=== PATIENT | male | born 1980 | race Caucasian/White ===

== ENCOUNTER 2018-10-21 06:19 | Emergency (ER) | payer OTHER, SELFPAY ==
[2018-10-21 06:23] VITALS: BP 159/86; PULSE 90; RESP 16; TEMP 36.9; O2SAT 98
--- NOTE | 2018-10-21 06:24 | W.ED.GENAD ---
Discharge Plan Disposition Patient Disposition: HOME Condition: Stable Discharge Details Chief Complaint: Trauma Clinical Impression: Concussion Primary Care Provider: Sergio Kinsey ED Provider: Ronny Faith Home Meds and New Rx's Prescriptions: New ondansetron 4 mg tablet,disintegrating 4 mg PO TID-QID PRN (Reason: nausea and vomiting) Qty: 30 RF: 0 Continued aspirin [Aspirin Low-Strength] 81 MG tablet,chewable 1 tab PO DAILY RF: 0 CPAP RF: 0 lancets [OneTouch Delica Lancets] 1 EACH misc 1 ea Miscellaneous DAILY Qty: 100 RF: 4 blood sugar diagnostic [OneTouch Ultra Test] 1 EACH strip 1 ea Miscellaneous DAILY Qty: 100 RF: 4 lisinopril 5 MG tablet 5 mg PO DAILY Qty: 90 RF: 3 metformin 500 mg tablet extended release 24hr 1,500 mg PO QPM Qty: 270 RF: 3 pen needle, diabetic [Pen Needle] 31 gauge x 5/16 needle 1 ea Miscellaneous DAILY Qty: 90 RF: 3 carvedilol 3.125 mg tablet 3.125 mg PO BID Qty: 60 RF: 2 Victoza 3-Kodi 0.6 mg/0.1 mL (18 mg/3 mL) pen injector 1.8 mg subcut DAILY Qty: 3 RF: 3 No Action multivitamin [Daily Multi-Vitamin] 1 EACH tablet 1 ea PO DAILY RF: 0 Prilosec OTC 20 mg tablet,delayed release (DR/EC) 20 mg PO DAILY Qty: 90 RF: 3 simvastatin 20 mg tablet 20 mg PO DAILY Qty: 90 RF: 3 sertraline 100 mg tablet 100 mg PO DAILY Qty: 90 RF: 3 Discharge Instructions Instructions: Concussion (ED) Additional Instructions: if symptoms are not better by next week see your primary care provider if you feel you are becoming more ill or have persistent vomit or severe worsening of pain return to the emergency department Stand Alone Forms: Work Release Medical Decision Making 38 yo male states this past Friday he was in the yard and a 1/4inch piece of steel flipped up and hit the right posterior head. Denies loc or vomit. HAs had intermittent nausea and dizziness and some light sensitivity since. He has no focal neuro deficits, CN II-XII intact. NO significant trauma noted on eam. I suspect concussion and gave precautions on this. He meets all criteria per [place] head ct rules to not image his head. ADvised f/u with pcp and return precautions given Differential Diagnosis concussion, tbi HPI General Mode of arrival: ambulatory. Date/Time Provider Initiated Documentation: 10/21/18 06:21. Limitations to Documentation: no limitations. Information obtained by: patient. History of Present Illness 38 year old M presents to the emergency department with the chief complaint of nausea/dizziness, described as mild, and is localized to the head. Patient started experiencing this day(s) (3) and it has been intermittent. No relieving factors improve symptom(s), Other factors that worsen symptoms (bright lights) . Patient did receive the following treatments prior to arrival, none Related Data Home Medications Medication Instructions Recorded Confirmed Cpap 09/11/12 02/03/14 aspirin [Aspirin Low-Strength] 1 tab PO DAILY tab-cap 09/11/12 08/04/17 lancets [[employer] Delica Lancets] #100 ea 11/04/14 multivitamin [Daily Multi-Vitamin] 1 ea PO DAILY 08/06/16 08/04/17 blood sugar diagnostic [OneTouch #100 strip 02/07/17 Ultra Test] lisinopril 5 mg PO DAILY #90 tab-cap 10/28/17 metformin ER 500 mg 1,500 mg PO QPM #270 tab 02/23/18 tablet,extended release 24hr omeprazole magnesium 20 mg 20 mg PO DAILY #90 tab-cap 03/10/18 tablet,delayed release pen needle, diabetic 31 gauge x #90 ndl 03/10/18 5/16 simvastatin 20 mg tablet 20 mg PO DAILY #90 tab-cap 03/10/18 sertraline 100 mg tablet 100 mg PO DAILY #90 tab-cap 05/14/18 carvedilol 3.125 mg tablet 3.125 mg PO BID #60 tab 09/07/18 liraglutide 0.6 mg/0.1 mL (18 mg/3 1.8 mg SUBCUT DAILY #3 pen 09/17/18 mL) subcutaneous pen injector ondansetron 4 mg PO TID-QID PRN #30 tab 10/21/18 Previous Rx's Medication Instructions Recorded lisinopril 5 mg PO DAILY #90 tab-cap 10/28/17 metformin ER 500 mg 1,500 mg PO QPM #270 tab 02/23/18 tablet,extended release 24hr omeprazole magnesium 20 mg 20 mg PO DAILY #90 tab-cap 03/10/18 tablet,delayed release pen needle, diabetic 31 gauge x #90 ndl 03/10/18 5/16 simvastatin 20 mg tablet 20 mg PO DAILY #90 tab-cap 03/10/18 sertraline 100 mg tablet 100 mg PO DAILY #90 tab-cap 05/14/18 carvedilol 3.125 mg tablet 3.125 mg PO BID #60 tab 09/07/18 liraglutide 0.6 mg/0.1 mL (18 mg/3 1.8 mg SUBCUT DAILY #3 pen 09/17/18 mL) subcutaneous pen injector ondansetron 4 mg PO TID-QID PRN #30 tab 10/21/18 Allergies Allergy/AdvReac Type Severity Reaction Status Date / Time chloramphenicol Allergy Unknown Unverified 10/21/18 06:28 chlorpheniramine Allergy Unknown Unverified 10/21/18 06:28 phenylephrine Allergy Unknown Unverified 10/21/18 06:28 phenylpropanolamine Allergy Unknown Unverified 10/21/18 06:28 phenyltoloxamine Allergy Unknown Unverified 10/21/18 06:28 Review of Systems Review of Systems All systems reviewed & are unremarkable except as noted in HPI and below Constitutional Denies chills, Denies fever(s) and Denies weakness Eyes Denies loss of vision Cardiovascular Denies chest pain and Denies dyspnea Respiratory Denies cough and Denies dyspnea Gastrointestinal Denies abdominal pain and Denies vomiting Neurologic Denies loss of vision and Denies weakness PFSH Family History STRONG FAMILY HX Heart disease Social History Smoking/Tobacco Use Status: Never Alcohol Intake: never Drug use: Never Substance use type: does not use Do you feel safe at home: Yes Do you feel safe in your relationship?: Yes Exam Const General: no acute distress Orientation: alert HENMT Head: normal to inspection Ears: external ears normal General nose exam: external nose normal Mouth: moist mucous membranes Eyes General: appearance normal, both eyes and all related structures Neck Neck: normal visual inspection Resp Effort & Inspection: normal respiratory effort and able to speak in complete sentences Cardio Rate: regular rate Skin General skin exam: no rashes or lesions noted Neuro General: alert and oriented x3 Extrem General: normal to inspection Psych Mental Status: mental status grossly normal
--- NOTE | 2018-10-21 06:31 | ED.GENADUL_ITS ---
Discharge Plan Disposition Patient Disposition: HOME Condition: Stable Discharge Details Chief Complaint: Trauma Clinical Impression: Concussion Primary Care Provider: Sergio Kinsey ED Provider: oRnny Faith Home Meds and New Rx's Prescriptions: New ondansetron 4 mg tablet,disintegrating 4 mg PO TID-QID PRN (Reason: nausea and vomiting) Qty: 30 RF: 0 Continued aspirin [Aspirin Low-Strength] 81 MG tablet,chewable 1 tab PO DAILY RF: 0 CPAP RF: 0 lancets [OneTouch Delica Lancets] 1 EACH misc 1 ea Miscellaneous DAILY Qty: 100 RF: 4 blood sugar diagnostic [OneTouch Ultra Test] 1 EACH strip 1 ea Miscellaneous DAILY Qty: 100 RF: 4 lisinopril 5 MG tablet 5 mg PO DAILY Qty: 90 RF: 3 metformin 500 mg tablet extended release 24hr 1,500 mg PO QPM Qty: 270 RF: 3 pen needle, diabetic [Pen Needle] 31 gauge x 5/16 needle 1 ea Miscellaneous DAILY Qty: 90 RF: 3 carvedilol 3.125 mg tablet 3.125 mg PO BID Qty: 60 RF: 2 Victoza 3-Kodi 0.6 mg/0.1 mL (18 mg/3 mL) pen injector 1.8 mg subcut DAILY Qty: 3 RF: 3 No Action multivitamin [Daily Multi-Vitamin] 1 EACH tablet 1 ea PO DAILY RF: 0 Prilosec OTC 20 mg tablet,delayed release (DR/EC) 20 mg PO DAILY Qty: 90 RF: 3 simvastatin 20 mg tablet 20 mg PO DAILY Qty: 90 RF: 3 sertraline 100 mg tablet 100 mg PO DAILY Qty: 90 RF: 3 Discharge Instructions Instructions: Concussion (ED) Additional Instructions: if symptoms are not better by next week see your primary care provider if you feel you are becoming more ill or have persistent vomit or severe worsening of pain return to the emergency department Stand Alone Forms: Work Release Medical Decision Making 38 yo male states this past Friday he was in the yard and a 1/4inch piece of steel flipped up and hit the right posterior head. Denies loc or vomit. HAs had intermittent nausea and dizziness and some light sensitivity since. He has no focal neuro deficits, CN II-XII intact. NO significant trauma noted on eam. I suspect concussion and gave precautions on this. He meets all criteria per [place] head ct rules to not image his head. ADvised f/u with pcp and return precautions given Differential Diagnosis concussion, tbi HPI General Mode of arrival: ambulatory . Date/Time Provider Initiated Documentation: 10/21/18 06:21 . Limitations to Documentation: no limitations . Information obtained by: patient . History of Present Illness 38 year old M presents to the emergency department with the chief complaint of nausea/dizziness, described as mild, and is localized to the head. Patient started experiencing this day(s) (3) and it has been intermittent. No relieving factors improve symptom(s), Other factors that worsen symptoms (bright lights) . Patient did receive the following treatments prior to arrival, none Related Data Home Medications Medication Instructions Recorded Confirmed Cpap 09/11/12 02/03/14 aspirin [Aspirin Low-Strength] 1 tab PO DAILY tab-cap 09/11/12 08/04/17 lancets [[employer] Delica Lancets] #100 ea 11/04/14 multivitamin [Daily Multi-Vitamin] 1 ea PO DAILY 08/06/16 08/04/17 blood sugar diagnostic [OneTouch #100 strip 02/07/17 Ultra Test] lisinopril 5 mg PO DAILY #90 tab-cap 10/28/17 metformin ER 500 mg 1,500 mg PO QPM #270 tab 02/23/18 tablet,extended release 24hr omeprazole magnesium 20 mg 20 mg PO DAILY #90 tab-cap 03/10/18 tablet,delayed release pen needle, diabetic 31 gauge x #90 ndl 03/10/18 5/16 simvastatin 20 mg tablet 20 mg PO DAILY #90 tab-cap 03/10/18 sertraline 100 mg tablet 100 mg PO DAILY #90 tab-cap 05/14/18 carvedilol 3.125 mg tablet 3.125 mg PO BID #60 tab 09/07/18 liraglutide 0.6 mg/0.1 mL (18 mg/3 1.8 mg SUBCUT DAILY #3 pen 09/17/18 mL) subcutaneous pen injector ondansetron 4 mg PO TID-QID PRN #30 tab 10/21/18 Previous Rx's Medication Instructions Recorded lisinopril 5 mg PO DAILY #90 tab-cap 10/28/17 metformin ER 500 mg 1,500 mg PO QPM #270 tab 02/23/18 tablet,extended release 24hr omeprazole magnesium 20 mg 20 mg PO DAILY #90 tab-cap 03/10/18 tablet,delayed release pen needle, diabetic 31 gauge x #90 ndl 03/10/18 5/16 simvastatin 20 mg tablet 20 mg PO DAILY #90 tab-cap 03/10/18 sertraline 100 mg tablet 100 mg PO DAILY #90 tab-cap 05/14/18 carvedilol 3.125 mg tablet 3.125 mg PO BID #60 tab 09/07/18 liraglutide 0.6 mg/0.1 mL (18 mg/3 1.8 mg SUBCUT DAILY #3 pen 09/17/18 mL) subcutaneous pen injector ondansetron 4 mg PO TID-QID PRN #30 tab 10/21/18 Allergies Allergy/AdvReac Type Severity Reaction Status Date / Time chloramphenicol Allergy Unknown Unverified 10/21/18 06:28 chlorpheniramine Allergy Unknown Unverified 10/21/18 06:28 phenylephrine Allergy Unknown Unverified 10/21/18 06:28 phenylpropanolamine Allergy Unknown Unverified 10/21/18 06:28 phenyltoloxamine Allergy Unknown Unverified 10/21/18 06:28 Review of Systems Review of Systems All systems reviewed & are unremarkable except as noted in HPI and below Constitutional Denies chills, Denies fever(s) and Denies weakness Eyes Denies loss of vision Cardiovascular Denies chest pain and Denies dyspnea Respiratory Denies cough and Denies dyspnea Gastrointestinal Denies abdominal pain and Denies vomiting Neurologic Denies loss of vision and Denies weakness PFSH Family History STRONG FAMILY HX Heart disease Social History Smoking/Tobacco Use Status: Never Alcohol Intake: never Drug use: Never Substance use type: does not use Do you feel safe at home: Yes Do you feel safe in your relationship?: Yes Exam Const General: no acute distress Orientation: alert HENMT Head: normal to inspection Ears: external ears normal General nose exam: external nose normal Mouth: moist mucous membranes Eyes General: appearance normal, both eyes and all related structures Neck Neck: normal visual inspection Resp Effort & Inspection: normal respiratory effort and able to speak in complete sentences Cardio Rate: regular rate Skin General skin exam: no rashes or lesions noted Neuro General: alert and oriented x3 Extrem General: normal to inspection Psych Mental Status: mental status grossly normal
== END 2018-10-21 06:36 | disposition home or self-care (01) ==
LOC: ER 06:40
PROVIDERS: Emergency Provider Emergency Medicine; PCP Family Medicine
DX: S06.0X0A Concussion without loss of consciousness, initial encounter (principal); R42 Dizziness and giddiness; R11.0 Nausea; W20.8XXA Other cause of strike by thrown, projected or falling object, initial encounter; E11.9 Type 2 diabetes mellitus without complications; Z79.84 Long term (current) use of oral hypoglycemic drugs; I10 Essential (primary) hypertension
CPT/HCPCS: 99283

== ENCOUNTER 2019-05-24 13:36 | Emergency (ER) | payer OTHER, SELFPAY ==
[2019-05-24] VITALS (25 sets, daily range): BP systolic 113–148; BP diastolic 58–81; PULSE 86–94; RESP 15–25; TEMP 37; O2SAT 96
[2019-05-24] MEDS: Normal Saline 1,000 ML 1000 ML IV (14:42)
--- NOTE | 2019-05-24 14:45 | W.ED.GENAD ---
Discharge Plan Disposition Patient Disposition: HOME Condition: Stable Discharge Details Chief Complaint: Dizzy/Sync Clinical Impression: Facial flushing, Lightheadedness Primary Care Provider: Sergio Kinsey ED Provider: Gerry Tsang Home Meds and New Rx's Prescriptions: No Action aspirin [Aspirin Low-Strength] 81 MG tablet,chewable 1 tab PO DAILY RF: 0 CPAP RF: 0 (DME) lancets [OneTouch Delica Lancets] 1 EACH misc 1 ea Miscellaneous DAILY Qty: 100 RF: 4 multivitamin [Daily Multi-Vitamin] 1 EACH tablet 1 ea PO DAILY RF: 0 (DME) blood sugar diagnostic [OneTouch Ultra Test] 1 EACH strip 1 ea Miscellaneous DAILY Qty: 100 RF: 4 Victoza 3-Kodi 0.6 mg/0.1 mL (18 mg/3 mL) pen injector 1.8 mg subcut DAILY Qty: 3 RF: 8 carvedilol 3.125 mg tablet 3.125 mg PO BID Qty: 180 RF: 3 lisinopril 5 mg tablet 5 mg PO DAILY Qty: 90 RF: 3 simvastatin 20 mg tablet 20 mg PO DAILY Qty: 90 RF: 3 Prilosec OTC 20 mg tablet,delayed release (DR/EC) 20 mg PO DAILY Qty: 90 RF: 3 (DME) pen needle, diabetic [Pen Needle] 31 gauge x 5/16 needle 1 ea Miscellaneous DAILY Qty: 90 RF: 3 sertraline 100 mg tablet 100 mg PO DAILY Qty: 90 RF: 3 metformin 500 mg tablet extended release 24hr 1,500 mg PO QPM Qty: 270 RF: 3 ondansetron 4 mg tablet,disintegrating 4 mg PO TID-QID PRN (Reason: nausea and vomiting) Qty: 30 RF: 0 Discharge Instructions Additional Instructions: 1. Drink plenty of fluids. 2. Continue all medications as prescribed. Except, increase omeprazole to 20 mg twice a day. 3. Acetaminophen 1000mg every 4 hours (up to 5 time a day) and/or ibuprofen 600mg every 6 hours as needed for fever or pain. 4. Follow-up with your doctor for reevaluation and possible cardiac re-stratification Return to the Emergency Department (ED) if your condition worsens, does not improve as expected, or for ANY other concerns. Specifically, return if you have new or uncontrolled pain, worsening fever, difficulty breathing, vomiting, or are unable to drink fluids. Medical Decision Making 38-year-old gentleman with a past medical history of a remote episode of facial flushing, diaphoresis, chest pain with an extensive work-up. Has been asymptomatic since until presented today with an episode of facial flushing and lightheadedness subjectively similar to his remote episode although not associate with significant diaphoresis or chest pressure. Anxious and subjectively fatigued on arrival. However, otherwise nonfocal exam with no other constitutional complaints. EKG nondiagnostic. Labs normal including a normal troponin. Remained stable with no further symptoms on multiple re-evaluations and remained in NSR on telemetry. Discussed unclear etiology although noted that patient had done well with no recurrent symptoms since his previous episodes 11 years ago. Discharged with plan for outpatient PCP follow-up and possible re-stratification. Of note, patient notes that his reflux has been worse recently. Recommended that he increase his omeprazole to 20 mg twice a day. Given usual and customary return instructions prior to discharge. Medical Records Medical records reviewed: Yes I reviewed the patient's medical records. Lab Data Lab results reviewed: Yes I reviewed the patient's lab results. Lab results narrative: Lab Results 05/24/19 05/24/19 05/24/19 Range/Units 14:10 14:31 14:40 Sodium 137 Cancelled (136-145) mmol/L Potassium 4.3 Cancelled (3.5-5.1) mmol/L Chloride 99 Cancelled (98-107) mmol/L Carbon Dioxide 25.7 Cancelled (21.0-32.0) mmol/L Anion Gap 12.3 H Cancelled (3-11) mmol/L BUN 16 Cancelled (7-18) mg/dL Creatinine 0.92 Cancelled (0.70-1.30) mg/dL Estimated GFR/1.73 m2 >= 60.00 Cancelled (mL/min/1.73m2) Glucose 227 H Cancelled (74-106) mg/dL Calcium 9.3 Cancelled (8.5-10.1) mg/dL Magnesium 1.8 Cancelled (1.8-2.4) mg/dL Total Bilirubin 0.2 (0.2-1.0) mg/dL AST 62 H (15-37) U/L ALT 127 H (16-63) U/L Alkaline Phosphatase 89 (46-116) U/L Troponin I Cancelled < 0.05 Total Protein 8.0 (6.4-8.2) g/dL Albumin 4.3 (3.4-5.0) g/dL ECG Data Attestation: I personally reviewed and interpreted this ECG (s) as follows: Prior ECG tracings: available for review Interpretation: Sinus rhythm 90 bpm. Normal axis and intervals. No acute ST changes. HPI 38-year-old gentleman with past medical history witching includes a remote episode of chest pain/lightheadedness and near syncope approximate 11 years ago. At that time, he had extensive work-up including a nuclear stress test. He has been on multiple medications for hypertension including carvedilol since. He has essentially been asymptomatic until today when he developed subjective facial flushing and lightheadedness subjectively similar nature to his episode 11 years ago. However, today he did not have significant chest pain or diaphoresis as he recalls with the previous event. He denies significant palpitations, tachycardia, dyspnea, abdominal pain, or abdominal bloating. He has had no recent change in bowel habits, melena, hematochezia, or urinary symptoms. On initial evaluation he feels mildly fatigued but otherwise denies any other constitutional complaints General Date/Time Provider Initiated Documentation: 05/24/19 14:31. Related Data Home Medications Medication Instructions Recorded Confirmed Cpap 09/11/12 02/03/14 aspirin [Aspirin Low-Strength] 1 tab PO DAILY tab-cap 09/11/12 05/24/19 [facility]ets [facility] Del[facility] Lancets] #100 ea 11/04/14 multivitamin [Daily Multi-Vitamin] 1 ea PO DAILY 08/06/16 10/21/18 blood sugar diagnostic [[employer] #100 strip 02/07/17 Ultra Test] ondansetron 4 mg PO TID-QID PRN #30 tab 10/21/18 05/24/19 carvedilol 3.125 mg tablet 3.125 mg PO BID #180 tab 01/25/19 05/24/19 liraglutide 0.6 mg/0.1 mL (18 mg/3 1.8 mg SUBCUT DAILY #3 pen 01/25/19 05/24/19 mL) subcutaneous pen injector lisinopril 5 mg tablet 5 mg PO DAILY #90 tab-cap 01/25/19 05/24/19 simvastatin 20 mg tablet 20 mg PO DAILY #90 tab-cap 02/26/19 05/24/19 omeprazole magnesium 20 mg 20 mg PO DAILY #90 tab-cap 03/22/19 05/24/19 tablet,delayed release metformin 500 mg tablet,extended 1,500 mg PO QPM #270 tab 04/26/19 05/24/19 release 24hr pen needle, diabetic 31 gauge x #90 ndl 04/26/1910/29 sertraline 100 mg tablet 100 mg PO DAILY #90 tab-cap 04/26/19 05/24/19 Previous Rx's Medication Instructions Recorded ondansetron 4 mg PO TID-QID PRN #30 tab 10/21/18 carvedilol 3.125 mg tablet 3.125 mg PO BID #180 tab 01/25/19 liraglutide 0.6 mg/0.1 mL (18 mg/3 1.8 mg SUBCUT DAILY #3 pen 01/25/19 mL) subcutaneous pen injector lisinopril 5 mg tablet 5 mg PO DAILY #90 tab-cap 01/25/19 simvastatin 20 mg tablet 20 mg PO DAILY #90 tab-cap 02/26/19 omeprazole magnesium 20 mg 20 mg PO DAILY #90 tab-cap 03/22/19 tablet,delayed release metformin 500 mg tablet,extended 1,500 mg PO QPM #270 tab 04/26/19 release 24hr pen needle, diabetic 31 gauge x #90 ndl 04/26/1910/29 sertraline 100 mg tablet 100 mg PO DAILY #90 tab-cap 04/26/19 Allergies Allergy/AdvReac Type Severity Reaction Status Date / Time chloramphenicol Allergy Unknown Unverified 05/24/19 13:52 chlorpheniramine Allergy Unknown Unverified 05/24/19 13:52 phenylephrine Allergy Unknown Unverified 05/24/19 13:52 phenylpropanolamine Allergy Unknown Unverified 05/24/19 13:52 phenyltoloxamine Allergy Unknown Unverified 05/24/19 13:52 General Stated Complaint: Dizzy/Sync HELGA: 3 Review of Systems All systems reviewed & are unremarkable except as noted in HPI and below PFSH Family History STRONG FAMILY HX Heart disease Social History Smoking/Tobacco Use Status: Never Alcohol Intake: never Drug use: Never Substance use type: does not use Do you feel safe at home: Yes Do you feel safe in your relationship?: Yes Exam Narrative Exam Narrative: Nursing note and vital signs have been reviewed and noted. GENERAL: alert, active, no acute distress, well -hydrated, well-nourished HEENT: atraumatic/normocephalic, PERRLA, EOMI, conjunctiva clear, external ears/canals normal, nasal mucosa normal NECK: supple, full range of motion, no mass, normal lymphadenopathy, no thyromegaly CARDIOVASCULAR: RRR, no murmurs, nl pulses, no edema PULMONARY: nl effort, no audible wheezing or stridor, nl breath sounds with no focal deficit. no chest wall tenderness ABDOMEN: soft, non-tender, non-distended, no mass, no organomegaly EXTREMITY: normal muscle tone, all joints with FROM, no deformity or tenderness SKIN: no exanthem appreciated NEURO: gross motor exam normal, normal stance and gait PSYCH: alert and oriented, Course Vital Signs Vital signs: Vital Signs Temperature 98.6 F 05/24/19 13:49 Pulse 90 05/24/19 13:49 Respiratory Rate 16 05/24/19 13:49 Blood Pressure 123/76 05/24/19 13:49 Pulse Oximetry 96 05/24/19 13:49 Temperature 98.6 F 05/24/19 13:49 Temperature Source Skin 05/24/19 13:49 Pulse 87 05/24/19 14:17 Pulse 90 05/24/19 14:20 Respiratory Rate 21 05/24/19 14:20 Respiratory Effort Non-Labored 05/24/19 14:02 Respiratory Depth Normal 05/24/19 14:02 Respiratory Pattern Normal 05/24/19 14:02 Blood Pressure 122/69 05/24/19 14:17 Blood Pressure Mean 82 05/24/19 14:17 Blood Pressure Position Sitting 05/24/19 13:49 Pulse Oximetry 96 05/24/19 13:49 Oxygen Delivery Method Room Air 05/24/19 13:49 Oxygen Flow Rate 0 05/24/19 13:49 Pain Level 0 05/24/19 13:49
[2019-05-24 15:18] LABS: ALT 127 U/L (16-63); AST 62 U/L (15-37); Albumin 4.3 g/dL (3.4-5.0); Alkaline Phosphatase 89 U/L (46-116); Anion Gap 12.3 mmol/L (3-11); BUN 16 mg/dL (7-18); Bilirubin, Total 0.2 mg/dL (0.2-1.0); CO2 25.7 mmol/L (21.0-32.0); CREATININE 0.92 mg/dL (0.70-1.30); Calcium 9.3 mg/dL (8.5-10.1); Chloride 99 mmol/L (98-107); Glucose 227 mg/dL (74-106); Magnesium 1.8 mg/dL (1.8-2.4); Potassium 4.3 mmol/L (3.5-5.1); Sodium 137 mmol/L (136-145)
[2019-05-24 15:28] LABS: Troponin I < 0.05 ng/Ml (<0.06)
== END 2019-05-24 15:59 | disposition home or self-care (01) ==
PROVIDERS: Emergency Provider Emergency Medicine; PCP Family Medicine
DX: R23.2 Flushing (principal); R42 Dizziness and giddiness; I10 Essential (primary) hypertension; E11.9 Type 2 diabetes mellitus without complications; Z79.84 Long term (current) use of oral hypoglycemic drugs
CPT/HCPCS: 80048; 80053; 93005; 96360; 99284; 83735; 84484; 93010

== ENCOUNTER 2019-08-17 11:54 | Outpatient (CLI) | payer OTHER, SELFPAY ==
[2019-08-17 13:14] LABS: Calculated LDL 41 mg/dL (<100); Cholesterol 144 mg/dL (<200); HDL Cholesterol 24 mg/dL (40-60); Potassium 4.1 mmol/L (3.5-5.1); Triglyceride 398 mg/dL (<150)
[2019-08-17 13:20] LABS: COMMENT (LAB VIEW ONLY) 155.49 mg/dL; Microalb ug/mg Crea 9.7 ug/mg Cr
[2019-08-17 13:49] LABS: Hemoglobin A1C 8.1 % (3.8-5.6)
== END 2019-08-17 12:14 ==
PROVIDERS: PCP Family Medicine; Visit Provider Family Medicine
DX: E11.9 Type 2 diabetes mellitus without complications (principal); E78.5 Hyperlipidemia, unspecified; R73.9 Hyperglycemia, unspecified
CPT/HCPCS: 36415; 80061; 82043; 82565; 82570; 83036; 84132

== ENCOUNTER 2020-07-11 07:53 | Emergency (ER) | payer BC, SELFPAY ==
[2020-07-11 07:59] VITALS: BP 132/79; PULSE 95; TEMP 36.6; O2SAT 95
--- NOTE | 2020-07-11 08:22 | W.ED.GENAD ---
Discharge Plan Disposition Patient Disposition: HOME Condition: Stable Discharge Details Clinical Impression: Diverticulosis large intestine w/o perforation or abscess w/bleeding Primary Care Provider: Sergio Kinsey ED Provider: Michlele Kiran Home Meds and New Rx's Prescriptions: Continued CPAP RF: 0 (DME) lancets [OneTouch Delica Lancets] 1 EACH misc 1 ea Miscellaneous DAILY Qty: 100 RF: 4 multivitamin [Daily Multi-Vitamin] 1 EACH tablet 1 ea PO DAILY RF: 0 (DME) OneTouch Ultra Test 1 EACH strip 1 ea Miscellaneous DAILY Qty: 100 RF: 4 lisinopril 5 mg tablet 5 mg PO DAILY Qty: 90 RF: 3 Jardiance 10 mg tablet 10 mg PO DAILY Qty: 90 RF: 3 carvedilol 3.125 mg tablet 3.125 mg PO BID Qty: 180 RF: 3 omeprazole magnesium [Prilosec OTC] 20 mg tablet,delayed release (DR/EC) 20 mg PO DAILY Qty: 90 RF: 3 Victoza 3-Kodi 0.6 mg/0.1 mL (18 mg/3 mL) pen injector 1.8 mg subcut DAILY Qty: 3 RF: 8 sertraline 100 mg tablet 100 mg PO DAILY Qty: 90 RF: 3 simvastatin 20 mg tablet 20 mg PO DAILY Qty: 90 RF: 3 metformin 500 mg tablet extended release 24hr 1,500 mg PO QPM Qty: 270 RF: 3 (DME) pen needle, diabetic [Pen Needle] 31 gauge x 5/16 needle 1 ea Miscellaneous DAILY Qty: 90 RF: 3 aspirin 81 mg Tablet,Delayed Release (Dr/Ec) 81 mg PO DAILY RF: 0 Discharge Instructions Instructions: Rectal Bleeding (ED), Diverticulosis (ED), Diverticulitis Diet (ED) Additional Instructions: Follow up with primary care provider in 3-5 days. Return to ED sooner if any worsening or concerns. Increase oral fluids. Please take Tylenol or Ibuprofen with food every 4-6 hours as needed for pain and swelling. Return to the ED for any worsening pain, dizziness, worsening rectal bleeding start passing clots were more than 3-4 episodes of rectal bleeding a day. Stand Alone Forms: Work Release Referrals: Cecile Oreilly MD [ [facility] STAFF PHYSICIAN] - Sergio Kinsey [Primary Care Provider] - Discharge Data Discharge Date/Time-TO BE ENTERED AT DEPARTURE: 07/11/20 10:09 Medical Decision Making 39-year-old male presents to the ER chief complaint of bright red rectal bleeding x1 this morning and left lower quadrant abdominal pain. He describes a dull ache to his left lower quadrant after having a bowel movement this morning which contained bright red blood. He denies any nausea or vomiting. Denies any rectal pain. He denies any alcohol use or ibuprofen or Tylenol. He does take a baby aspirin daily. She has a past medical history of hyperlipidemia, obesity, GERD, diabetes, depression. Work-up ordered including CBC, CMP, lipase, CT abdomen pelvis with IV contrast. EXAM: CT ABDOMEN PELVIS W CLINICAL HISTORY: LLQ abd pain, Rectal bleeding. TECHNIQUE: Imaging Protocol: Axial computed tomography images with coronal and sagittal reformatted images were created and reviewed CONTRAST MATERIAL: Intravenous: Omnipaque 350 Contrast volume:100 Oral: No COMPARISON: US ABDOMEN ULTRASOUND (P) from 04/17/2015 FINDINGS: ABDOMEN: Lung Bases: Normal where visualized. Liver: Enlarged. Mild hepatic steatosis. No measurable mass. Gallbladder and biliary tract: Question of a few small dependent stones. No biliary dilation, abnormal gallbladder distention or wall thickening. Pericholecystic fluid.. Pancreas: Normal density, no abnormal calcifications or inflammatory process. Spleen: Normal. Kidneys: Normal size, contour and axis. No radiodense stones or obstructive uropathy. No masses seen. Adrenal glands: No masses seen. Abdominal Aorta: Abdominal portion non-dilated. Soft tissues: Small fatty containing umbilical hernia. PELVIS: Bladder: Symmetric distention, no gross wall thickening. Bowel: Diverticulosis lower descending and sigmoid colon. No surrounding inflammation. No obstruction or bowel wall thickening. Normal appendix. No gastric or small bowel distention or wall thickening. No perirectal thickening. Peritoneal cavity: No ascites, collection or mesenteric inflammatory response. No free air. Bones: Within normal limits. Reproductive organs: Within normal limits. Lymph nodes: Unremarkable. Impression: Diverticulosis of the lower descending and sigmoid colon. No visible diverticulitis. No free air or abscess.. Labs are largely unremarkable H&H within normal limits. Patient is hemodynamically stable and nontachycardic here in department. At this time there is no evidence of diverticulitis or free air or abscess to indicate a perforated diverticulum. Will place patient on the follow-up list for general surgery within a week. Discussed home care and strict return instructions with patient who verbalized understanding. HPI General Mode of arrival: ambulatory. Date/Time Provider Initiated Documentation: 07/11/20 08:02. Limitations to Documentation: no limitations. Information obtained by: patient. HPI Narrative: 39-year-old male presents to the ER chief complaint of bright red rectal bleeding x1 this morning and left lower quadrant abdominal pain. He describes a dull ache to his left lower quadrant after having a bowel movement this morning which contained bright red blood. He denies any nausea or vomiting. Denies any rectal pain. He denies any alcohol use or ibuprofen or Tylenol. He does take a baby aspirin daily. She has a past medical history of hyperlipidemia, obesity, GERD, diabetes, depression. Related Data Home Medications Medication Instructions Recorded Confirmed Cpap 09/11/12 08/17/19 lancets [OneTouch Delica Lancets] #100 ea 11/04/14 08/17/19 multivitamin [Daily Multi-Vitamin] 1 ea PO DAILY 08/06/16 07/11/20 OneTouch Ultra Test #100 strip 02/07/17 08/17/19 lisinopril 5 mg tablet 5 mg PO DAILY #90 tab-cap 11/03/19 07/11/20 carvedilol 3.125 mg tablet 3.125 mg PO BID #180 tab 11/22/19 07/11/20 empagliflozin 10 mg tablet 10 mg PO DAILY #90 tab 11/22/19 07/11/20 omeprazole magnesium 20 mg 20 mg PO DAILY #90 tab-cap 01/03/20 07/11/20 tablet,delayed release liraglutide 0.6 mg/0.1 mL (18 mg/3 1.8 mg SUBCUT DAILY #3 pen 02/07/20 07/11/20 mL) subcutaneous pen injector sertraline 100 mg tablet 100 mg PO DAILY #90 tab-cap 02/18/20 07/11/20 simvastatin 20 mg tablet 20 mg PO DAILY #90 tab-cap 04/03/20 07/11/20 metformin 500 mg tablet,extended 1,500 mg PO QPM #270 tab 05/15/20 07/11/20 release 24hr pen needle, diabetic 31 gauge x #90 ndl 06/12/2010/29 aspirin 81 mg PO DAILY 07/11/20 07/11/20 Previous Rx's Medication Instructions Recorded lisinopril 5 mg tablet 5 mg PO DAILY #90 tab-cap 11/03/19 carvedilol 3.125 mg tablet 3.125 mg PO BID #180 tab 11/22/19 empagliflozin 10 mg tablet 10 mg PO DAILY #90 tab 11/22/19 omeprazole magnesium 20 mg 20 mg PO DAILY #90 tab-cap 01/03/20 tablet,delayed release liraglutide 0.6 mg/0.1 mL (18 mg/3 1.8 mg SUBCUT DAILY #3 pen 02/07/20 mL) subcutaneous pen injector sertraline 100 mg tablet 100 mg PO DAILY #90 tab-cap 02/18/20 simvastatin 20 mg tablet 20 mg PO DAILY #90 tab-cap 04/03/20 metformin 500 mg tablet,extended 1,500 mg PO QPM #270 tab 05/15/20 release 24hr pen needle, diabetic 31 gauge x #90 ndl 06/12/2010/29 Allergies Allergy/AdvReac Type Severity Reaction Status Date / Time chloramphenicol Allergy Unknown Unverified 07/11/20 08:04 chlorpheniramine Allergy Unknown Unverified 07/11/20 08:04 phenylephrine Allergy Unknown Unverified 07/11/20 08:04 phenylpropanolamine Allergy Unknown Unverified 07/11/20 08:04 phenyltoloxamine Allergy Unknown Unverified 07/11/20 08:04 General Stated Complaint: GI Bleed HELGA: 3 Review of Systems Narrative: Constitutional: Negative for weight loss, alert and oriented, well groomed, obese body habitus, appears comfortable. HEENT: Denies trauma, headaches, blurry vision, nasal discharge, sore throat, trouble swallowing. Chest: Denies chest pain, palpitations, irregular rhythm, hypertension. Respiratory: Denies Shortness of breath, cough, hemoptysis. GI: Denies nausea, vomiting, diarrhea, constipation. Positive left lower quadrant abdominal pain. : Denies dysuria, hematuria, flank pain, positive rectal bleeding. Neuro: Denies dizziness, blurry vision, weakness, syncope, headache or facial numbness. Hematologic: Denies easy bruising, intolerance to heat or cold, hair loss. PFSH Family History STRONG FAMILY HX Heart disease Mother No problems noted. Father , age 53 Depression Diabetes Heart disease Hyperlipidemia Sister Depression Son Asthma Depression Maternal Grandfather , age 80 Alcohol abuse Cancer Paternal Grandfather , age 72 Diabetes Maternal Grandmother , age 78 No problems noted. Paternal Grandmother , age 80 No problems noted. Social History Smoking/Tobacco Use Status: Former Tobacco Use Tobacco: How many years used: 13 Second Hand Exposure: Yes Smoking risk assessment performed?: Yes Alcohol Intake: current Alcohol Intake frequency: a few times a month Alcohol type: beer and hard liquor Drug use: Never Substance use type: does not use Caregiver/Support person: No Household members: spouse and children Communication Needs: None Pets and animals: Yes Pets and animals: cat(s), fish and other Details: bearded dragon Sexually active: Yes Do you think of yourself as: straight/heterosexual Current gender identity: male What is your relationship status?: How often do you talk on the phone with friends or family?: once per week How often do you get together with friends or relatives?: once per week How often do you attend sikhism or advent services?: decline to answer Do you belong to any clubs or organized social groups?: no Panel score (0-1 are the most socially isolated patients): 1 What type of physical activity do you participate in: walking Duration: > 90 minutes/day Frequency: daily Tika/Oriental Orthodox: Yarsanism Special tika needs: No Seatbelt use: never Helmet use: Yes Helmet use: always Drive intox or ride w/intox explosives truck driver: No Do you feel safe at home: Yes Do you feel safe in your relationship?: Yes Exam Narrative Exam Narrative: Constitutional: Alert and oriented x3. Appears stated age. Normal body habitus. Head: Normocephalic, no trauma. Eyes: Pupils PERRLA, Red reflex noted, EOM's intact. Eyelids symmetrical without lesions, discharge, or swelling. ENT: Bilateral TM's WNL, External ear normal to inspection, no mastoid TTP, swelling, or erythema, Nasal turbinates WNL, no nasal discharge. Normal dentition, Posterior pharynx WNL, no exudate. Chest: RRR, Normal S1, S2, distal pulses intact. Resp: Lungs clear to auscultation bilaterally, no wheezes, rales, or rhonchi. Abdomen: Soft, nondistended, tender to left lower quadrant with palpation. Musculoskeletal: Normal gait, 5/5 strength to all four extremities. Skin: No suspicious rashes or lesions. Capillary refill less than 2 sec. Neurologic: Cranial nerves II-XII intact. Alert and oriented x 3. DTR's intact. Hematologic/Lymphatic: No ecchymosis, no lymphadenopathy. Course Vital Signs Vital signs: Vital Signs Temperature 36.6 C 07/11/20 07:59 Pulse 95 H 07/11/20 07:59 Blood Pressure 132/79 07/11/20 07:59 Pulse Oximetry 95 07/11/20 07:59 Temperature 36.6 C 07/11/20 07:59 Temperature Source Temporal Artery Scan 07/11/20 07:59 Pulse 95 H 07/11/20 07:59 Respiratory Effort Non-Labored 07/11/20 08:03 Blood Pressure 132/79 07/11/20 07:59 Blood Pressure Position Sitting 07/11/20 07:59 Pulse Oximetry 95 07/11/20 07:59 Oxygen Delivery Method Room Air 07/11/20 07:59 Oxygen Flow Rate 0 07/11/20 07:59 Pain Level 2 07/11/20 07:59 Procedures Stool Hemoccult Procedural Steps Taken: stool placed in appropriate test area, developer placed on stool and control areas and controls appropriately positive and negative Hemoccult result: positive Additional Comments: gross hematochezia
[2020-07-11] MEDS: Normal Saline 1,000 ML 1000 ML IV (08:25)
[2020-07-11] MEDS: Normal Saline Flush 10 ML SYR IVP (08:25)
[2020-07-11 08:36] LABS: Abs Immature Grans 0.05 10^3/uL (0.0-0.06); Absolute Basophil Count 0.03 10^3/uL (0.0-0.2); Absolute Eosinophil Count 0.12 10^3/uL (0.0-0.7); Absolute Lymphocyte Count 1.27 10^3/uL (1.2-3.4); Absolute Monocyte Count 0.35 10^3/uL (0.1-0.8); Absolute Neutrophil Count 3.47 10^3/uL (1.2-6.7); Basophils % 0.6; Eosinophils % 2.3; HGB 14.5 g/dL (13.5-17.5); Immature Grans % 0.9; MCH 27.5 pg (27.0-33.0); MCHC 33.7 % (32.0-36.0); MCV 81.4 fL (80-95); MPV 9.9 fL (8.0-11.0); Monocytes % 6.6; Neutrophils % 65.6; Nucleated RBC 0 %; Platelet Count 152 10^3/uL (130-400); RBC 5.28 10^6/uL (4.36-5.78); RDW 13.4 % (11.8-14.1); RDW-SD 39.7 fL; WBC 5.29 10^3/uL (4.4-10.8)
[2020-07-11 08:52] LABS: ALT 110 U/L (16-63); AST 43 U/L (15-37); Albumin 4.5 g/dL (3.4-5.0); Alkaline Phosphatase 76 U/L (46-116); Anion Gap 7.7 mmol/L (3-11); BUN 14 mg/dL (7-18); Bilirubin, Total 0.4 mg/dL (0.2-1.0); CO2 26.3 mmol/L (21.0-32.0); CREATININE 0.79 mg/dL (0.70-1.30); Calcium 8.8 mg/dL (8.5-10.1); Chloride 102 mmol/L (98-107); Glucose 118 mg/dL (74-106); Lipase 185 U/L (73-393); Magnesium 2.1 mg/dL (1.8-2.4); Sodium 136 mmol/L (136-145); Total Protein 8.1 g/dL (6.4-8.2)
[2020-07-11] MEDS: Omnipaque 350 MG/ML 100 ML BTL IJ (09:20)
--- NOTE | 2020-07-11 09:25 | DI.CT_ITS ---
EXAM: CT ABDOMEN PELVIS W CLINICAL HISTORY: LLQ abd pain, Rectal bleeding. TECHNIQUE: Imaging Protocol: Axial computed tomography images with coronal and sagittal reformatted images were created and reviewed CONTRAST MATERIAL: Intravenous: Omnipaque 350 Contrast volume:100 Oral: No COMPARISON: US ABDOMEN ULTRASOUND (P) from 04/17/2015 FINDINGS: ABDOMEN: Lung Bases: Normal where visualized. Liver: Enlarged. Mild hepatic steatosis. No measurable mass. Gallbladder and biliary tract: Question of a few small dependent stones. No biliary dilation, abnor mal gallbladder distention or wall thickening. Pericholecystic fluid.. Pancreas: Normal density, no abnormal calcifications or inflammatory process. Spleen: Normal. Kidneys: Normal size, contour and axis. No radiodense stones or obstructive uropathy. No masses seen. Adrenal glands: No masses seen. Abdominal Aorta: Abdominal portion non-dilated. Soft tissues: Small fatty containing umbilical hernia. PELVIS: Bladder: Symmetric distention, no gross wall thickening. Bowel: Diverticulosis lower descending and sigmoid colon. No surrounding inflammation. No obstruct ion or bowel wall thickening. Normal appendix. No gastric or small bowel distention or wall thicke va. No perirectal thickening. Peritoneal cavity: No ascites, collection or mesenteric inflammatory response. No free air. Bones: Within normal limits. Reproductive organs: Within normal limits. Lymph nodes: Unremarkable. Impression: Diverticulosis of the lower descending and sigmoid colon. No visible diverticulitis. No free air or abscess.. RADIATION DOSE DELIVERED: Total DLP DATA REPOSITORY: All CT scans at this facility are submitted to the National Radiology Data Registry (NRDR) Dose Index Registry (DIR) with the [employer] (A[employer]). RADIATION OPTIMIZATION: All CT scans at this facility use at least one of these dose optimization te chniques: automated exposure control; mA and/or kV adjustment per patient size (includes targeted exa ms where dose is matched to clinical indication); or iterative reconstruction.
[2020-07-11] MEDS: Normal Saline - Diluent 50 ML VIAL IV (09:33)
[2020-07-11 09:45] LABS: Bilirubin Negative (Negative); Blood Negative (Negative); Clarity Clear (Clear); Glucose 500 mg/dL (Negative); Ketones Negative (Negative); Leukocyte Esterase Negative (Negative); Nitrite Negative (Negative); Urobilinogen 0.2 EU/dL (Up TO 0.2); pH 5.5 (5-8)
--- NOTE | 2020-07-11 09:56 | NUR.NOTE ---
Referral [facility] f/u for diverticulosis and rectal bleeding.Nursing Note:
[2020-07-11 10:05] VITALS: BP 117/69; PULSE 80; RESP 18; TEMP 37.2; O2SAT 95
== END 2020-07-11 10:09 | disposition home or self-care (01) ==
PROVIDERS: Emergency Provider Registered Nurse Emergency; PCP Family Medicine
DX: K57.31 Diverticulosis of large intestine without perforation or abscess with bleeding (principal); R10.32 Left lower quadrant pain; E11.9 Type 2 diabetes mellitus without complications; Z79.84 Long term (current) use of oral hypoglycemic drugs
CPT/HCPCS: 36415; 80053; 83690; 96360; 99285; 74177; 81003; 83735; 85025; 99284; J3490

== ENCOUNTER 2021-03-31 06:45 | Emergency (ER) | payer BC, SELFPAY ==
[2021-03-31 06:50] VITALS: BP 137/76; PULSE 93; RESP 16; TEMP 36; O2SAT 96
--- NOTE | 2021-03-31 06:51 | W.ED.GENAD ---
Discharge Plan Disposition Patient Disposition: HOME Condition: Improving Discharge Details Clinical Impression: Acute diverticulitis Primary Care Provider: Sergio Kinsey ED Provider: Mariah Flores Home Meds and New Rx's Prescriptions: New amoxicillin-pot clavulanate [Augmentin] 875-125 mg tablet 1 tab PO BID 10 Days Qty: 20 RF: 0 Continued sertraline 50 mg tablet 50 mg PO DAILY Qty: 90 RF: 3 sertraline 100 mg tablet 50 mg PO DAILY Qty: 90 RF: 3 CPAP RF: 0 (DME) lancets [OneTouch Delica Lancets] 1 EACH misc 1 ea Miscellaneous DAILY Qty: 100 RF: 4 multivitamin [Daily Multi-Vitamin] 1 EACH tablet 1 ea PO DAILY RF: 0 (DME) OneTouch Ultra Test 1 EACH strip 1 ea Miscellaneous DAILY Qty: 100 RF: 4 omeprazole magnesium [Prilosec OTC] 20 mg tablet,delayed release (DR/EC) 20 mg PO DAILY Qty: 90 RF: 3 (DME) pen needle, diabetic [Pen Needle] 31 gauge x 5/16 needle 1 ea Miscellaneous DAILY Qty: 90 RF: 3 Trulicity 0.75 mg/0.5 mL pen injector 0.75 mg subcut QWEEK Qty: 2 RF: 11 lisinopril 5 mg tablet 5 mg PO DAILY Qty: 90 RF: 3 carvedilol 3.125 mg tablet 3.125 mg PO BID Qty: 180 RF: 3 Jardiance 10 mg tablet 10 mg PO DAILY Qty: 90 RF: 3 simvastatin 20 mg tablet 20 mg PO DAILY Qty: 90 RF: 3 metformin 500 mg tablet extended release 24hr 1,500 mg PO QPM Qty: 270 RF: 3 aspirin 81 mg Tablet,Delayed Release (Dr/Ec) 81 mg PO DAILY RF: 0 Discharge Instructions Instructions: Diverticulitis (ED), Diverticulitis Diet (ED) Additional Instructions: Your CAT scan today noted evidence of diverticulitis which is an infection in your colon secondary to your diverticulosis. A prescription for antibiotics has been sent electronically to your pharmacy. Pick this up today and take this as directed until finished. You should follow a clear liquid diet over the 24 hours to allow your bowel to rest. Follow the diverticulitis diet as directed. Alternate tylenol and motrin as needed and directed for pain. Call the general surgery office on Friday morning to schedule a follow-up appointment for reevaluation. Return immediately to the emergency department if you develop any worsening or new concerning symptoms. Referrals: Cecile Oreilly MD [ [facility] STAFF PHYSICIAN] - Discharge Data Discharge Date/Time-TO BE ENTERED AT DEPARTURE: 03/31/21 10:23 Discharge Physician: Mariah Flores Medical Decision Making <Arun Casas MD - Last Filed: 03/31/21 07:13> Patient presenting with 2-1/2 days of worsening left lower quadrant abdominal pain. He is exquisitely tender with guarding in the left lower quadrant. No testicular tenderness. No hernia present. Likely diverticulitis given previous diagnosis of diverticulosis. Will place IV and start fluids. Toradol for pain. Laboratory studies and CT scan ordered. Need to make sure there is no perforation or abscess given the amount of tenderness he has. Will likely require IV antibiotics and admission. <Mariah Flores DO - Last Filed: 03/31/21 11:57> 0800 -- Please see Dr. Casas's note for initial presentation, exam and plan. Case endorsed to follow-up on CT imaging and final disposition. 09 -- CT pending. Patient reassessed and he feels much better, states his pain is completely resolved after IV Toradol. 0945 -- CT notes acute diverticulitis involving the descending and sigmoid colon without abscess or perforation. Also noted cholelithiasis, hepatic steatosis and splenomegaly. Patient informed of results. Patient feels much better and would like to go home. As he has no fever, normal white blood cell count and has symptomatically improved, will give a dose of oral antibiotics and discharge home. Case and imaging reviewed with surgery who agree with plan. He was given 1 dose of Augmentin here and prescription sent electronically to his pharmacy. He was given surgery follow-up information. Usual and customary return precautions given prior to discharge. Medical Records Medical records reviewed: Yes I reviewed the patient's medical records. Imaging Data Radiologic Study: Radiologist's impression: CT Abdomen And Pelvis With Contrast Exam date and time: 03/31/2021 8:24 AM Age: 40 years old Clinical indication: Other: Llq pain/tenderness TECHNIQUE: Imaging protocol: Computed tomography of the abdomen and pelvis with contrast. Radiation optimization: All CT scans at this facility use at least one of these dose optimization techniques: automated exposure control; mA and/or kV adjustment per patient size (includes targeted exams where dose is matched to clinical indication); or iterative reconstruction. Contrast material: OMNIPAQUE 350; Contrast volume: 100 ml; Contrast route: INTRAVENOUS (IV); COMPARISON: CT ABDOMEN PELVIS W 11/07/2020 09:20 FINDINGS: Lungs: Visualized lung bases are clear. Liver: There is mild diffuse fatty infiltration of the liver with no mass or ductal dilatation. Gallbladder and bile ducts: Small calcified stones are seen near the neck of the gallbladder without wall thickening or pericholecystic fluid. The common bile duct remains normal. Pancreas: Normal. No mass or ductal dilation. Spleen: The spleen is enlarged to about 17 cm sagittal diameter. Adrenal glands: Normal. No mass. Kidneys and ureters: Normal. No hydronephrosis, calculus, cyst or mass. Stomach and bowel: Stomach and small bowel are normal. There is a oval radiopaque object in the cecum which is probably an ingested tablet of some sort. In the left lower quadrant there is diverticular disease with wall thickening inflammation involving a segment about 9 cm long. There is no abscess collection or perforation. Appendix: No evidence of appendicitis. Intraperitoneal space: Unremarkable. No free air. No significant fluid collection. Vasculature: Unremarkable. No abdominal aortic aneurysm or significant atherosclerosis. Lymph nodes: No enlarged retroperitoneal or mesenteric lymph nodes. Few shotty retroperitoneal lymph nodes are present. Urinary bladder: No mass or wall thickening. Reproductive: Unremarkable as visualized. Bones/joints: Unremarkable. No acute fracture. No lytic lesion. Soft tissues: Unremarkable. IMPRESSION: 1. Acute diverticulitis involving the descending and sigmoid colon without abscess or perforation. 2. Cholelithiasis. 3. Hepatic steatosis. 4. Splenomegaly. Lab Data Lab results reviewed: Yes I reviewed the patient's lab results. Labs: Laboratory Tests Range/Units 03/31/21 03/31/21 03/31/21 07:10 07:10 07:10 WBC (4.4-10.8) 10^3/uL 8.89 RBC (4.36-5.78) 10^6/uL 5.13 Hgb (13.5-17.5) g/dL 14.1 Hct (40.0-50.0) % 42.9 MCV (80-95) fL 83.6 MCH (27.0-33.0) pg 27.5 MCHC (32.0-36.0) % 32.9 RDW (11.8-14.1) % 13.1 Plt Count (130-400) 10^3/uL 152 MPV (8.0-11.0) fL 9.6 Immature Gran % 0.6 Neutrophils % 77.9 Lymphocytes % 13.2 Monocytes % 7.0 Eosinophils % 1.1 Basophils % 0.2 Nucleated RBC % % 0 Absolute Neutrophils (1.2-6.7) 10^3/uL 6.93 H Absolute Lymphocytes (1.2-3.4) 10^3/uL 1.17 L Absolute Monocytes (0.1-0.8) 10^3/uL 0.62 Absolute Eosinophils (0.0-0.7) 10^3/uL 0.10 Absolute Basophils (0.0-0.2) 10^3/uL 0.02 Sodium (136-145) mmol/L 140 Potassium (3.5-5.1) mmol/L 4.0 Chloride (98-107) mmol/L 102 Carbon Dioxide (21.0-32.0) mmol/L 29.4 Anion Gap (3-11) mmol/L 8.6 BUN (7-18) mg/dL 19 H Creatinine (0.70-1.30) mg/dL 0.8 Estimated GFR/1.73 m2 (mL/min/1.73m2) >= 60.00 Glucose (74-106) mg/dL 101 Calcium (8.5-10.1) mg/dL 9.1 Total Bilirubin (0.2-1.0) mg/dL 0.6 AST (15-37) U/L 20 ALT (16-63) U/L 50 Alkaline Phosphatase (46-116) U/L 89 Total Protein (6.4-8.2) g/dL 7.8 Albumin (3.4-5.0) g/dL 4.2 Lipase (73-393) U/L 106 Urine Color (Yellow) Urine Clarity (Clear) Urine pH (5-8) Ur Specific Coward (1.005-1.025) Urine Protein (Negative) mg/dL Urine Ketones (Negative) mg/dL Urine Blood (Negative) Urine Nitrite (Negative) Urine Bilirubin (Negative) Urine Urobilinogen (Up TO 0.2) EU/dL Ur Leukocyte Esterase (Negative) Urine Glucose (Negative) mg/dL Range/Units 03/31/21 07:50 WBC (4.4-10.8) 10^3/uL RBC (4.36-5.78) 10^6/uL Hgb (13.5-17.5) g/dL Hct (40.0-50.0) % MCV (80-95) fL MCH (27.0-33.0) pg MCHC (32.0-36.0) % RDW (11.8-14.1) % Plt Count (130-400) 10^3/uL MPV (8.0-11.0) fL Immature Gran % Neutrophils % Lymphocytes % Monocytes % Eosinophils % Basophils % Nucleated RBC % % Absolute Neutrophils (1.2-6.7) 10^3/uL Absolute Lymphocytes (1.2-3.4) 10^3/uL Absolute Monocytes (0.1-0.8) 10^3/uL Absolute Eosinophils (0.0-0.7) 10^3/uL Absolute Basophils (0.0-0.2) 10^3/uL Sodium (136-145) mmol/L Potassium (3.5-5.1) mmol/L Chloride (98-107) mmol/L Carbon Dioxide (21.0-32.0) mmol/L Anion Gap (3-11) mmol/L BUN (7-18) mg/dL Creatinine (0.70-1.30) mg/dL Estimated GFR/1.73 m2 (mL/min/1.73m2) Glucose (74-106) mg/dL Calcium (8.5-10.1) mg/dL Total Bilirubin (0.2-1.0) mg/dL AST (15-37) U/L ALT (16-63) U/L Alkaline Phosphatase (46-116) U/L Total Protein (6.4-8.2) g/dL Albumin (3.4-5.0) g/dL Lipase (73-393) U/L Urine Color (Yellow) Yellow Urine Clarity (Clear) Sl Cloudy Urine pH (5-8) 7.0 Ur Specific Coward (1.005-1.025) 1.025 Urine Protein (Negative) mg/dL Negative Urine Ketones (Negative) mg/dL Negative Urine Blood (Negative) Negative Urine Nitrite (Negative) Negative Urine Bilirubin (Negative) Negative Urine Urobilinogen (Up TO 0.2) EU/dL 0.2 Ur Leukocyte Esterase (Negative) Negative Urine Glucose (Negative) mg/dL >=1000 H HPI <Arun Casas MD - Last Filed: 03/31/21 07:13> General Mode of arrival: ambulatory. Date/Time Provider Initiated Documentation: 03/31/21 06:49. Limitations to Documentation: no limitations. Information obtained by: patient, RN notes reviewed and old records reviewed. HPI Narrative: Patient presents to ED with left lower quadrant abdominal pain. Patient reports symptoms began 2-1/2 days ago. Initially thought that he just strained a muscle. Has had worsening pain since. Localized to the left lower quadrant. This morning severe, difficulty ambulating, significant pain while driving to the ED. He denies any fever, vomiting, diarrhea, back pain, testicular pain, urinary symptoms. Previous episode of rectal bleeding with CT scan in June of this year showing diverticulosis. No further bleeding since then and no abdominal problems until 2-1/2 days ago. Related Data Home Medications Medication Instructions Recorded Confirmed Cpap 09/11/12 03/23/21 lancets [OneTouch Delica Lancets] #100 ea 11/04/14 03/31/21 multivitamin [Daily Multi-Vitamin] 1 ea PO DAILY 08/06/16 03/31/21 OneTouch Ultra Test #100 strip 02/07/17 03/31/21 omeprazole magnesium 20 mg 20 mg PO DAILY #90 tab-cap 01/03/20 03/31/21 tablet,delayed release pen needle, diabetic 31 gauge x #90 ndl 06/12/20 03/31/2110/29 aspirin 81 mg PO DAILY 07/11/20 03/31/21 dulaglutide 0.75 mg/0.5 mL 0.75 mg SUBCUT QWEEK #2 ml 08/03/20 03/31/21 subcutaneous pen injector lisinopril 5 mg tablet 5 mg PO DAILY #90 tab-cap 11/02/20 03/31/21 carvedilol 3.125 mg tablet 3.125 mg PO BID #180 tab 11/07/20 03/31/21 empagliflozin 10 mg tablet 10 mg PO DAILY #90 tab 11/20/20 03/31/21 sertraline 100 mg tablet 50 mg PO DAILY #90 tab-cap 11/28/20 03/31/21 sertraline 50 mg tablet 50 mg PO DAILY #90 tab 11/28/20 03/31/21 metformin 500 mg tablet,extended 1,500 mg PO QPM #270 tab 02/28/21 03/31/21 release 24hr simvastatin 20 mg tablet 20 mg PO DAILY #90 tab-cap 02/28/21 03/31/21 amoxicillin-pot clavulanate 1 tab PO BID 10 Days #20 tab 03/31/21 [Augmentin] Previous Rx's Medication Instructions Recorded omeprazole magnesium 20 mg 20 mg PO DAILY #90 tab-cap 01/03/20 tablet,delayed release pen needle, diabetic 31 gauge x #90 ndl 06/12/2010/29 dulaglutide 0.75 mg/0.5 mL 0.75 mg SUBCUT QWEEK #2 ml 08/03/20 subcutaneous pen injector lisinopril 5 mg tablet 5 mg PO DAILY #90 tab-cap 11/02/20 carvedilol 3.125 mg tablet 3.125 mg PO BID #180 tab 11/07/20 empagliflozin 10 mg tablet 10 mg PO DAILY #90 tab 11/20/20 sertraline 100 mg tablet 50 mg PO DAILY #90 tab-cap 11/28/20 sertraline 50 mg tablet 50 mg PO DAILY #90 tab 11/28/20 metformin 500 mg tablet,extended 1,500 mg PO QPM #270 tab 02/28/21 release 24hr simvastatin 20 mg tablet 20 mg PO DAILY #90 tab-cap 02/28/21 amoxicillin-pot clavulanate 1 tab PO BID 10 Days #20 tab 03/31/21 [Augmentin] Allergies Allergy/AdvReac Type Severity Reaction Status Date / Time chloramphenicol Allergy Unknown Verified 03/31/21 06:55 chlorpheniramine Allergy Unknown From Verified 03/31/21 06:55 Naldecon phenylephrine Allergy Unknown From Verified 03/31/21 06:55 [place] phenylpropanolamine Allergy Unknown From Verified 03/31/21 06:55 [place] phenyltoloxamine Allergy Unknown From Verified 03/31/21 06:55 Naldecon General HELGA: 3 Review of Systems <Arun Casas MD - Last Filed: 03/31/21 07:13> Narrative: 03/29 Review of Systems completed and is negative except as stated above in HPI (Systems reviewed: Const, Eyes, ENT, Resp, CV, GI, , MSK, Skin, Neuro) PFSH <Arun Casas MD - Last Filed: 03/31/21 07:13> Medical History Diabetes mellitus (10/31/14) Essential hypertension (04/15/13) Gastroesophageal reflux disease (02/25/12) Hyperlipidemia (10/19/12) Obesity Obstructive sleep apnea syndrome CPAP Surgical History No significant past surgical history Family History STRONG FAMILY HX Heart disease Mother No problems noted. Father , age 53 Depression Diabetes Heart disease Hyperlipidemia Sister Depression Son Asthma Depression Maternal Grandfather , age 80 Alcohol abuse Cancer Paternal Grandfather , age 72 Diabetes Maternal Grandmother , age 78 No problems noted. Paternal Grandmother , age 80 No problems noted. Social History Smoking/Tobacco Use Status: Former Tobacco Use Tobacco: How many years used: 13 Second Hand Exposure: Yes Smoking risk assessment performed?: Yes Alcohol Intake: current Alcohol Intake frequency: a few times a month Alcohol type: beer and hard liquor Drug use: Never Substance use type: does not use Caregiver/Support person: No Household members: spouse and children Communication Needs: None Pets and animals: Yes Pets and animals: cat(s), fish and other Details: bearded dragon Sexually active: Yes Do you think of yourself as: straight/heterosexual Current gender identity: male What is your relationship status?: How often do you talk on the phone with friends or family?: once per week How often do you get together with friends or relatives?: once per week How often do you attend sabianism or restorationist services?: decline to answer Do you belong to any clubs or organized social groups?: no Panel score (0-1 are the most socially isolated patients): 1 What type of physical activity do you participate in: walking Duration: > 90 minutes/day Frequency: daily Tika/Sikhism: Hoahaoism Special tika needs: No Seatbelt use: never Helmet use: Yes Helmet use: always Drive intox or ride w/intox refrigerated national truck driver: No Do you feel safe at home: Yes Do you feel safe in your relationship?: Yes Exam <Arun Casas MD - Last Filed: 03/31/21 07:13> Narrative Exam Narrative: Const: WDWN male in NAD. HEENT: NC/AT. Normal facial exam. Eyes: Normal conjunctiva and sclera. Neck: Supple. Trachea midline. Lungs: Normal respiratory effort. Lungs are clear. Cor: RRR without murmur/gallop. Good radial pulses. GI: Soft and ND. Tender with guarding/rebound LLQ. : No hernia. No testicular tenderness. Neuro: A+O x 3. Normal speech, mentation, gait. Cranial nerves II - XII grossly intact. No gross motor or sensory deficit. Ext: No C/C/E. Skin: Warm and dry without rash. Sign Out <Arun Casas MD - Last Filed: 03/31/21 07:13> Sign Out Data: Sign Out Comment: pending labs/CT scan Last updated by Arun Casas MD at 03/31/21 07:49
[2021-03-31 07:26] LABS: Abs Immature Grans 0.05 10^3/uL (0.0-0.06); Absolute Basophil Count 0.02 10^3/uL (0.0-0.2); Absolute Lymphocyte Count 1.17 10^3/uL (1.2-3.4); Absolute Monocyte Count 0.62 10^3/uL (0.1-0.8); Absolute Neutrophil Count 6.93 10^3/uL (1.2-6.7); Basophils % 0.2; Eosinophils % 1.1; HCT 42.9 % (40.0-50.0); HGB 14.1 g/dL (13.5-17.5); Immature Grans % 0.6; Lymphocytes % 13.2; MCH 27.5 pg (27.0-33.0); MCHC 32.9 % (32.0-36.0); MCV 83.6 fL (80-95); MPV 9.6 fL (8.0-11.0); Neutrophils % 77.9; Nucleated RBC 0 %; Platelet Count 152 10^3/uL (130-400); RBC 5.13 10^6/uL (4.36-5.78); RDW 13.1 % (11.8-14.1); RDW-SD 40.2 fL; WBC 8.89 10^3/uL (4.4-10.8)
[2021-03-31 07:34] LABS: Lipase 106 U/L (73-393)
[2021-03-31] MEDS: Lactated Ringers 1,000 ML 125 ML IV (07:34)
[2021-03-31] MEDS: Ketorolac 15 MG/ML VIAL IVP (07:39)
[2021-03-31] MEDS: Normal Saline Flush 10 ML SYR IVP ×2 (07:40→08:33)
[2021-03-31 07:47] VITALS: BP 128/71; PULSE 85; RESP 16; TEMP 36.2; O2SAT 96
[2021-03-31 07:48] LABS: ALT 50 U/L (16-63); AST 20 U/L (15-37); Albumin 4.2 g/dL (3.4-5.0); Alkaline Phosphatase 89 U/L (46-116); Anion Gap 8.6 mmol/L (3-11); BUN 19 mg/dL (7-18); Bilirubin, Total 0.6 mg/dL (0.2-1.0); CO2 29.4 mmol/L (21.0-32.0); CREATININE 0.8 mg/dL (0.70-1.30); Calcium 9.1 mg/dL (8.5-10.1); Chloride 102 mmol/L (98-107); Glucose 101 mg/dL (74-106); Sodium 140 mmol/L (136-145); Total Protein 7.8 g/dL (6.4-8.2)
[2021-03-31 08:10] LABS: Bilirubin Negative (Negative); Blood Negative (Negative); Clarity Sl Cloudy (Clear); Glucose >=1000 mg/dL (Negative); Ketones Negative (Negative); Leukocyte Esterase Negative (Negative); Nitrite Negative (Negative); Specific Gravity 1.025 (1.005-1.025); Urobilinogen 0.2 EU/dL (Up TO 0.2)
--- NOTE | 2021-03-31 08:30 | DI.CT_ITS ---
Exam(s) CT ABDOMEN PELVIS W EXAM: CT ABDOMEN PELVIS W CLINICAL HISTORY: LLQ pain/tenderness TECHNIQUE: Imaging Protocol: Axial computed tomography images with coronal and sagittal reformatted images were created and reviewed CONTRAST MATERIAL: Intravenous: Omnipaque 350 Contrast volume:100 mL Oral: No COMPARISON: CT CT ABDOMEN PELVIS W from 07/11/2020 FINDINGS: ABDOMEN: Lung Bases: Normal where visualized. Liver: Fatty infiltration of the liver. No measurable mass. Portal, Superior Mesenteric, and Splenic Veins: Unremarkable. Gallbladder and Biliary Tract: Cholelithiasis. No biliary ductal dilatation. Pancreas: Normal density, no abnormal calcifications or inflammatory process. Spleen: Splenomegaly. Adrenals: No masses seen. Kidneys: Normal size, contour and axis. No radiodense stones or obstructive uropathy. No masses seen. Abdominal Aorta: Abdominal portion non-dilated. Bowel: There is bowel wall thickening seen in the distal descending and proximal sigmoid colon. Ther e are scattered diverticula seen in the sigmoid colon. Inflammatory changes are seen around the prox imal sigmoid colon. Appendix is unremarkable. Peritoneal Cavity: No ascites, collection or mesenteric inflammatory response. No free air. Lymph Nodes: Within normal limits. Bones: Within normal limits for the patient's age. Unilateral left spondylolysis at L5. No spondylo listhesis. Soft Tissues: Unremarkable. PELVIS: Bladder: Incomplete distension of the urinary bladder. No gross abnormality. Reproductive Organs: Unremarkable as visualized. Lymph Nodes: Within normal limits. Bones: Within normal limits for the patient's age. IMPRESSION: 1. Findings consistent with acute diverticulitis involving the distal descending colon and proximal s igmoid colon. No evidence of abscess or free air. 2. Cholelithiasis. 3. Hepatic steatosis. 4. Splenomegaly. RADIATION DOSE DELIVERED: 1,230.66mGy.cm Total DLP DATA REPOSITORY: All CT scans at this facility are submitted to the National Radiology Data Registry (NRDR) Dose Index Registry (DIR) with the [employer] (A[employer]). RADIATION OPTIMIZATION: All CT scans at this facility use at least one of these dose optimization te chniques: automated exposure control; mA and/or kV adjustment per patient size (includes targeted exa ms where dose is matched to clinical indication); or iterative reconstruction.
[2021-03-31] MEDS: Omnipaque 350 MG/ML 100 ML BTL IJ (08:33)
[2021-03-31] MEDS: Normal Saline - Diluent 50 ML VIAL IV (08:33)
[2021-03-31 08:50] VITALS: BP 105/59; PULSE 83; RESP 14; TEMP 36.2; O2SAT 96
--- NOTE | 2021-03-31 09:41 | DI.VRAD_ITS ---
Addendum created by Edgardo Gant MD on 03/31/2021 9:45:14 AM EDT: THIS REPORT CONTAINS FINDINGS THAT MAY BE CRITICAL TO PATIENT CARE. The findings were verbally communicated by me to Arlette Price via telephone conference at 9:44 AM EDT on 03/31/2021. The findings were acknowledged and understood. Initial report created on 03/31/2021 9:41:07 AM EDT: PROCEDURE INFORMATION: Exam: CT Abdomen And Pelvis With Contrast Exam date and time: 03/31/2021 8:24 AM Age: 40 years old Clinical indication: Other: Llq pain/tenderness TECHNIQUE: Imaging protocol: Computed tomography of the abdomen and pelvis with contrast. Radiation optimization: All CT scans at this facility use at least one of these dose optimization techniques: automated exposure control; mA and/or kV adjustment per patient size (includes targeted exams where dose is matched to clinical indication); or iterative reconstruction. Contrast material: OMNIPAQUE 350; Contrast volume: 100 ml; Contrast route: INTRAVENOUS (IV); COMPARISON: CT ABDOMEN PELVIS W 11/07/2020 09:20 FINDINGS: Lungs: Visualized lung bases are clear. Liver: There is mild diffuse fatty infiltration of the liver with no mass or ductal dilatation. Gallbladder and bile ducts: Small calcified stones are seen near the neck of the gallbladder without wall thickening or pericholecystic fluid. The common bile duct remains normal. Pancreas: Normal. No mass or ductal dilation. Spleen: The spleen is enlarged to about 17 cm sagittal diameter. Adrenal glands: Normal. No mass. Kidneys and ureters: Normal. No hydronephrosis, calculus, cyst or mass. Stomach and bowel: Stomach and small bowel are normal. There is a oval radiopaque object in the cecum which is probably an ingested tablet of some sort. In the left lower quadrant there is diverticular disease with wall thickening inflammation involving a segment about 9 cm long. There is no abscess collection or perforation. Appendix: No evidence of appendicitis. Intraperitoneal space: Unremarkable. No free air. No significant fluid collection. Vasculature: Unremarkable. No abdominal aortic aneurysm or significant atherosclerosis. Lymph nodes: No enlarged retroperitoneal or mesenteric lymph nodes. Few shotty retroperitoneal lymph nodes are present. Urinary bladder: No mass or wall thickening. Reproductive: Unremarkable as visualized. Bones/joints: Unremarkable. No acute fracture. No lytic lesion. Soft tissues: Unremarkable. IMPRESSION: 1. Acute diverticulitis involving the descending and sigmoid colon without abscess or perforation. 2. Cholelithiasis. 3. Hepatic steatosis. 4. Splenomegaly. Dictated and Authenticated by: Edgardo Gant MD. Ordering:FREDDIE Dias MD
[2021-03-31] MEDS: Amoxicillin 875/Clav. 125 TAB PO (09:55)
[2021-03-31 10:21] VITALS: BP 105/59; PULSE 83; RESP 14; TEMP 36.2; O2SAT 96
--- NOTE | 2021-03-31 12:00 | NUR.NOTE ---
Nursing Note: Referral faxed to [facility] for follow up of diverticulitis within 2 weeks. Lyudmila Heaton
== END 2021-03-31 10:23 | disposition home or self-care (01) ==
PROVIDERS: Emergency Medicine; Emergency Provider Physician Assistant; PCP Family Medicine
DX: K57.32 Diverticulitis of large intestine without perforation or abscess without bleeding (principal)
CPT/HCPCS: 36415; 80053; 83690; 96361; 96374; 99285; 74177; 81003; 85025; 99284; J1885; J3490

== ENCOUNTER 2021-06-09 11:58 | Emergency (ER) | payer BC, SELFPAY ==
[2021-06-09 12:03] VITALS: BP 139/86; PULSE 95; RESP 16; TEMP 36; O2SAT 98
--- NOTE | 2021-06-09 12:25 | W.ED.GENAD ---
Discharge Plan Disposition Patient Disposition: HOME Condition: Stable Discharge Details Clinical Impression: Laceration of hand, right, Digital nerve laceration, finger Primary Care Provider: Sergio Kinsey ED Provider: Cuate Stratton Home Meds and New Rx's Prescriptions: New cephalexin 500 mg capsule 500 mg PO BID Qty: 10 RF: 0 Continued CPAP RF: 0 (DME) lancets [OneTouch Delica Lancets] 1 EACH misc 1 ea Miscellaneous DAILY Qty: 100 RF: 4 multivitamin [Daily Multi-Vitamin] 1 EACH tablet 1 ea PO DAILY RF: 0 (DME) OneTouch Ultra Test 1 EACH strip 1 ea Miscellaneous DAILY Qty: 100 RF: 4 omeprazole magnesium [Prilosec OTC] 20 mg tablet,delayed release (DR/EC) 20 mg PO DAILY Qty: 90 RF: 3 (DME) pen needle, diabetic [Pen Needle] 31 gauge x 5/16 needle 1 ea Miscellaneous DAILY Qty: 90 RF: 3 Trulicity 0.75 mg/0.5 mL pen injector 0.75 mg subcut QWEEK Qty: 2 RF: 11 lisinopril 5 mg tablet 5 mg PO DAILY Qty: 90 RF: 3 carvedilol 3.125 mg tablet 3.125 mg PO BID Qty: 180 RF: 3 Jardiance 10 mg tablet 10 mg PO DAILY Qty: 90 RF: 3 metformin 500 mg tablet extended release 24hr 1,500 mg PO QPM Qty: 270 RF: 3 simvastatin 20 mg tablet 20 mg PO DAILY Qty: 90 RF: 3 sertraline 50 mg tablet 50 mg PO DAILY Qty: 90 RF: 3 aspirin 81 mg Tablet,Delayed Release (Dr/Ec) 81 mg PO DAILY RF: 0 Discharge Instructions Instructions: Cephalexin (By mouth), Finger Laceration (ED) Additional Instructions: You have a laceration over your right fifth metacarpal. I am concerned that the digital nerve in that area was lacerated. Please follow-up with orthopedic hand specialist on Friday. Call for an appointment. If numbness persists, further treatment including potential for surgery may be indicated. Please discuss this with orthopedics. Keep splint and dressing dry and intact. Please return to the emergency department immediately should you have any worsening or new concerning symptoms. Referrals: [facility] [Provider Group] Discharge Data Discharge Date/Time-TO BE ENTERED AT DEPARTURE: 06/09/21 14:11 Medical Decision Making 1230 --40-year-old male here with palmar laceration right hand over fifth MCP, brisk venous bleeding. Flexor tendon function intact. Decreased sensation 5th digit with concern for digital nerve laceration. No orthopedic hand specialist available at [facility], I have called [facility] [place] transfer center to request transfer. Awaiting call back. Local injection of lidocaine 1% with epinephrine 1mL for pain and hemostasis. Bleeding slowed. Pressure dressing applied and bleeding control. 1352 -- wound was cleansed and irrigated with copious sterile saline wound does not appear to extend into the joint capsule. No flexor tendon visible. I spoke with [facility] [place] hand specialist, orthopedic fellow on-call, discussed ED presentation and course, he recommended x-ray of the hand, discharged on Keflex with outpatient follow-up for digital nerve repair. Wound repaired. Hemostasis achieved. Volar resting splint applied. HPI General Mode of arrival: ambulatory. Date/Time Provider Initiated Documentation: 06/09/21 12:03. Limitations to Documentation: no limitations. Information obtained by: patient. HPI Narrative: 40-year-old male with history of hypertension, diabetes, adjustment disorder with anxiety, presents with chief complaint of laceration. Patient notes he accidentally cut his right hand on new kitchen just prior to arrival. Wound has been bleeding since injury. Wound is localized over fifth MCP. Patient notes wound is severe with no modifiers. He has associated numbness in his fifth digit. Related Data Home Medications Medication Instructions Recorded Confirmed Cpap 09/11/12 04/12/21 lancets [OneTouch Delica Lancets] #100 ea 11/04/14 06/09/21 multivitamin [Daily Multi-Vitamin] 1 ea PO DAILY 08/06/16 06/09/21 OneTouch Ultra Test #100 strip 02/07/17 06/09/21 omeprazole magnesium 20 mg 20 mg PO DAILY #90 tab-cap 01/03/20 06/09/21 tablet,delayed release pen needle, diabetic 31 gauge x #90 ndl 06/12/20 06/09/2110/29 aspirin 81 mg PO DAILY 07/11/20 06/09/21 dulaglutide 0.75 mg/0.5 mL 0.75 mg SUBCUT QWEEK #2 ml 08/03/20 06/09/21 subcutaneous pen injector lisinopril 5 mg tablet 5 mg PO DAILY #90 tab-cap 11/02/20 06/09/21 carvedilol 3.125 mg tablet 3.125 mg PO BID #180 tab 11/07/20 06/09/21 empagliflozin 10 mg tablet 10 mg PO DAILY #90 tab 11/20/20 06/09/21 metformin 500 mg tablet,extended 1,500 mg PO QPM #270 tab 02/28/21 06/09/21 release 24hr sertraline 50 mg tablet 50 mg PO DAILY #90 tab 04/19/21 06/09/21 simvastatin 20 mg tablet 20 mg PO DAILY #90 tab-cap 04/19/21 06/09/21 cephalexin 500 mg PO BID #10 cap 06/09/21 Previous Rx's Medication Instructions Recorded omeprazole magnesium 20 mg 20 mg PO DAILY #90 tab-cap 01/03/20 tablet,delayed release pen needle, diabetic 31 gauge x #90 ndl 06/12/20 5/16 dulaglutide 0.75 mg/0.5 mL 0.75 mg SUBCUT QWEEK #2 ml 08/03/20 subcutaneous pen injector lisinopril 5 mg tablet 5 mg PO DAILY #90 tab-cap 11/02/20 carvedilol 3.125 mg tablet 3.125 mg PO BID #180 tab 11/07/20 empagliflozin 10 mg tablet 10 mg PO DAILY #90 tab 11/20/20 metformin 500 mg tablet,extended 1,500 mg PO QPM #270 tab 02/28/21 release 24hr sertraline 50 mg tablet 50 mg PO DAILY #90 tab 04/19/21 simvastatin 20 mg tablet 20 mg PO DAILY #90 tab-cap 04/19/21 cephalexin 500 mg PO BID #10 cap 06/09/21 Allergies Allergy/AdvReac Type Severity Reaction Status Date / Time chloramphenicol Allergy Unknown Verified 06/09/21 12:07 chlorpheniramine Allergy Unknown From Verified 06/09/21 12:07 Naldecon phenylephrine Allergy Unknown From Verified 06/09/21 12:07 Naldecon phenylpropanolamine Allergy Unknown From Verified 06/09/21 12:07 Naldecon phenyltoloxamine Allergy Unknown From Verified 06/09/21 12:07 Naldecon General Stated Complaint: Laceration HELGA: 4 Review of Systems Integumentary/Breasts Skin/Breast: Reports as per HPI Neurologic Neurologic: Reports as per HPI PFSH All Active Problems (Updated 06/09/21 @ 13:57 by Cuate Stratton MD) Laceration of hand, right (Acute) Digital nerve laceration, finger (Acute) Gall bladder polyp (Acute 10/31/14) stable on follow up Depressive disorder (Acute) Concussion (Acute) History of smoking (Acute) Adjustment disorder with anxiety (Acute) Acute diverticulitis (Acute) Obstructive sleep apnea syndrome (Chronic) CPAP Obesity (Chronic) Hyperlipidemia (Chronic 10/19/12) Gastroesophageal reflux disease (Chronic 02/25/12) Essential hypertension (Chronic 04/15/13) Diabetes mellitus (Chronic 10/31/14) Diverticulosis large intestine w/o perforation or abscess w/bleeding (Acute) Bereavement due to life event (Acute) History of chest pain (Acute) Elevated LFTs (Acute 11/21/14) neg hep c normal transferrin sat us fatty liver Increased BMI (Acute) Surgical History No significant past surgical history Family History STRONG FAMILY HX Heart disease Mother No problems noted. Father , age 53 Depression Diabetes Heart disease Hyperlipidemia Sister Depression Son Asthma Depression Maternal Grandfather , age 80 Alcohol abuse Cancer Paternal Grandfather , age 72 Diabetes Maternal Grandmother , age 78 No problems noted. Paternal Grandmother , age 80 No problems noted. Social History Smoking/Tobacco Use Status: Former Tobacco Use Tobacco: How many years used: 13 Second Hand Exposure: Yes Smoking risk assessment performed?: Yes Alcohol Intake: current Alcohol Intake frequency: a few times a month Alcohol type: beer and hard liquor Drug use: Never Substance use type: does not use Caregiver/Support person: No Household members: spouse and children Communication Needs: None Pets and animals: Yes Pets and animals: cat(s), fish and other Details: bearded dragon Sexually active: Yes Do you think of yourself as: straight/heterosexual Current gender identity: male What is your relationship status?: How often do you talk on the phone with friends or family?: once per week How often do you get together with friends or relatives?: once per week How often do you attend sikh or jew services?: decline to answer Do you belong to any clubs or organized social groups?: no Panel score (0-1 are the most socially isolated patients): 1 What type of physical activity do you participate in: walking Duration: > 90 minutes/day Frequency: daily Tika/Tenriism: Rastafarian Special tika needs: No Seatbelt use: never Helmet use: Yes Helmet use: always Drive intox or ride w/intox frontload driver: No Do you feel safe at home: Yes Do you feel safe in your relationship?: Yes Exam Skin Trauma: laceration (rt 5th mcp palmar with venule bleed) Extrem Right upper extremity: hand Details: normal capillary refill, neuromotor exam normal, neurosensory exam abnormal (no sensation palmar 5th digit distal to wound medially, minimal sensation laterally, intact posterior), tendon exam normal and laceration (3cm horizontal over 5th mcp, bleeding) Course Vital Signs Vital signs: Vital Signs Temperature 36 C L 06/09/21 12:03 Pulse 95 H 06/09/21 12:03 Respiratory Rate 16 06/09/21 12:03 Blood Pressure 139/86 06/09/21 12:03 Pulse Oximetry 98 06/09/21 12:03 Temperature 36 C L 06/09/21 12:03 Temperature Source Skin 06/09/21 12:03 Pulse 95 H 06/09/21 12:03 Respiratory Rate 16 06/09/21 12:03 Respiratory Effort 06/09/21 12:03 Blood Pressure 139/86 06/09/21 12:03 Blood Pressure Position Supine 06/09/21 12:03 Pulse Oximetry 98 06/09/21 12:03 Pain Level 2 06/09/21 12:03 Procedures Laceration Laceration 1: Site: hand (over 5th mcp) Side (If applicable): right Size (cm): 3 Description: linear Depth: simple, single layer Local Anesthetic: Lidocaine 1% Amount of anesthesia used (mL): 1 Pre-repair: wound explored, irrigated extensively and deep structures intact Skin layer closed with: nylon Size (cm): 4-0 Number of sutures: 6 Technique: simple, interrupted
--- NOTE | 2021-06-09 12:45 | DI.RAD_ITS ---
Exam(s) XR HAND RT COMPLETE EXAM: XR HAND RT COMPLETE CLINICAL HISTORY: [facility] [place] [facility] [place], laceration. TECHNIQUE: 2D digital imaging was performed. COMPARISON: No exams were available for comparison FINDINGS: There is soft tissue swelling which is predominantly on the palmar aspect. No radiopaque foreign bod y. No fracture evident. No radiographic evidence of osteomyelitis. IMPRESSION: Soft tissue swelling. No significant osseous findings. No radiopaque foreign body. DATA REPOSITORY: RADIATION DOSE DELIVERED:
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
[2021-06-09] MEDS: Cephalexin 500 MG CAP, 4 CAPS/BTL PO (14:08)
[2021-06-09] MEDS: Cephalexin 500 MG CAP PO (14:08)
== END 2021-06-09 14:11 | disposition home or self-care (01) ==
PROVIDERS: Emergency Provider Student in an Organized Health Care Education/Training Program; PCP Family Medicine
DX: S61.411A Laceration without foreign body of right hand, initial encounter (principal); S64.490A Injury of digital nerve of right index finger, initial encounter; W26.0XXA Contact with knife, initial encounter
CPT/HCPCS: 12002; 99283; 73130

== ENCOUNTER 2022-02-21 16:01 | Outpatient (REF) | payer BC, SELFPAY ==
[2022-02-22 20:06] LABS: Albumin, Ur < 0.6 mg/dL (See Note); Creatinine, Ur 88.4 mg/dL (See Note)
== END 2022-02-21 16:02 | disposition home or self-care (01) ==
LOC: LBN 16:01
PROVIDERS: PCP Family Medicine; Visit Provider Family Medicine
DX: E11.9 Type 2 diabetes mellitus without complications (principal)
CPT/HCPCS: 82043; 82570

== ENCOUNTER 2022-02-27 01:17 | Outpatient (CLI) | payer BC, SELFPAY ==
--- NOTE | 2022-02-27 07:45 | DI.RAD_ITS ---
Exam(s) XR KNEE LT 3V AP,LAT,FRANCISCO EXAM: XR KNEE LT 3V AP,LAT,FRANCISCO CLINICAL HISTORY: recurrent knee pain on left,M25.562. TECHNIQUE: 2D digital imaging was performed. COMPARISON: No exams were available for comparison FINDINGS: 3 views No evidence of fracture nor prominent joint effusion. No osteochondral defects. No joint space narr owing. No osteophytes. Bone density normal. No osseous lesions. IMPRESSION: No significant osseous findings. DATA REPOSITORY: RADIATION DOSE DELIVERED:
== END 2022-02-27 01:37 ==
LOC: DI 01:17
PROVIDERS: PCP Family Medicine; Visit Provider Family Medicine
DX: M25.562 Pain in left knee (principal)
CPT/HCPCS: 73562

== ENCOUNTER 2022-02-27 01:50 | Outpatient (CLI) | payer BC, SELFPAY ==
[2022-02-27 16:26] LABS: CREATININE 0.8 mg/dL (0.70-1.30); Calculated LDL 57 mg/dL (<100); Cholesterol 136 mg/dL (<200); Estimated GFR 113.32 (mL/min/1.73m2); HDL Cholesterol 31 mg/dL (40-60); Potassium 3.8 mmol/L (3.5-5.1); Triglyceride 242 mg/dL (<150)
== END 2022-02-27 01:51 | disposition home or self-care (01) ==
LOC: LBO 01:50
PROVIDERS: PCP Family Medicine; Visit Provider Family Medicine
DX: E78.5 Hyperlipidemia, unspecified; I10 Essential (primary) hypertension
CPT/HCPCS: 80061; 82565; 84132

== ENCOUNTER 2022-08-27 20:38 | Outpatient (REF) | payer BC, SELFPAY ==
[2022-08-27 21:37] LABS: COMMENT (LAB VIEW ONLY) 126.36 mg/dL; Microalb ug/mg Crea 9.3 ug/mg Cr
== END 2022-08-27 20:39 | disposition home or self-care (01) ==
LOC: LBN 20:38
PROVIDERS: PCP Family Medicine; Visit Provider Family Medicine
DX: E11.9 Type 2 diabetes mellitus without complications (principal)
CPT/HCPCS: 82043; 82570

== ENCOUNTER → 2023-09-08 04:00 | Outpatient (CLI) | payer BC, SELFPAY ==
--- NOTE | 2023-09-08 08:15 | DI.RAD_ITS ---
Exam(s) XR LUMBAR SPINE COMPLETE EXAM: XR LUMBAR SPINE COMPLETE CLINICAL HISTORY: increased right low back pain,M54.50,RT LEG PAIN,M79.604. TECHNIQUE: 2D digital imaging was performed. Five views. COMPARISON: No exams were available for comparison FINDINGS: BONES: No fracture or destructive lesion. Vertebral body heights are maintained. Small endplate oste ophytes. No facet hypertrophy identified. Spina bifida occulta at L5. DISKS: Intervertebral disc spaces are maintained. ALIGNMENT: Lumbar spinal alignment is within normal limits. SOFT TISSUE: Normal. IMPRESSION: Mild degenerative changes. DATA REPOSITORY: RADIATION DOSE DELIVERED:
== END ==
PROVIDERS: PCP Family Medicine; Visit Provider Nurse Practitioner Family
DX: M54.50 Low back pain, unspecified (principal); M79.604 Pain in right leg
CPT/HCPCS: 72110

== ENCOUNTER 2023-10-30 06:36 | Emergency (ER) | payer BC, SELFPAY ==
[2023-10-30 06:40] VITALS: BP 137/80; PULSE 86; RESP 18; TEMP 36.8; O2SAT 98
--- NOTE | 2023-10-30 07:02 | ED.GENADUL_ITS ---
Discharge Plan Disposition Patient Disposition: Home Discharge Details Clinical Impression: Acute right lower quadrant pain, Cholelithiasis Primary Care Provider: Sergio Kinsey ED Provider: Heath Taylor Home Meds and New Rx's Prescriptions: Continued sertraline 50 mg tablet 50 mg PO DAILY Qty: 90 3RF lisinopril 5 mg tablet 5 mg PO DAILY Qty: 90 3RF metformin 500 mg tablet extended release 24hr 1,500 mg PO QPM Qty: 270 3RF simvastatin 20 mg tablet 20 mg PO DAILY Qty: 90 3RF carvedilol 3.125 mg tablet 3.125 mg PO BID Qty: 180 3RF Rx Instructions: must administer with a meal/food CPAP 1 unit inhalation DAILY (DME) lancets [OneTouch Delica Lancets] 1 EACH misc 1 ea Miscellaneous DAILY Qty: 100 Rx Instructions: dx: 250.00 on oral meds multivitamin [Daily Multi-Vitamin] 1 EACH tablet 1 ea PO DAILY (DME) OneTouch Ultra Test 1 EACH strip 1 ea Miscellaneous DAILY Qty: 100 Rx Instructions: dx:250.00 on oral meds (DME) pen needle, diabetic [Pen Needle] 31 gauge x 5/16 needle 1 ea Miscellaneous DAILY Qty: 90 3RF Rx Instructions: use daily dulaglutide 3 mg/0.5 mL pen injector 3 mg subcut QWEEK Qty: 2 11RF pantoprazole 40 mg tablet,delayed release (DR/EC) 40 mg PO DAILY Qty: 90 3RF aspirin 81 mg Tablet,Delayed Release (Dr/Ec) 81 mg PO DAILY No Action ondansetron 4 mg tablet,disintegrating 4 mg PO Q6H PRN Qty: 14 0RF tramadol 50 mg tablet 50 mg PO Q4H PRN PRN (Reason: pain) Qty: 10 0RF Discharge Instructions Instructions: Abdominal Pain (ED) Additional Instructions: You were seen in the emergency department for your abdominal pain. Your CAT scan showed no sign of appendicitis. Your ultrasound showed that you had gallstones but no signs of a gallbladder infection. Please go to the general surgery clinic now to meet with a surgeon and schedule a time to have her gallbladder removed. As we discussed please take these nausea medications as directed. Please return to the emergency department if you cannot eat or drink as result of nausea or vomiting or if you develop any fevers or worsening pain. For your pain please take medications as follows: 1. Take acetaminophen (Tylenol), 1,000 mg (two 500 mg tabs) every 6 hours Referrals: [facility] [Provider Group] [facility] General Date/Time Provider Initiated Documentation: 10/30/23 07:02 . HPI Narrative: [facility] This is an overall well-appearing normothermic and not tachycardic 43-year-old male with right lower quadrant tenderness concerning for multiple etiologies. Given right lower quadrant pain I am suspicious for appendicitis for which patient will receive CT abdomen pelvis with IV contrast. No diarrhea and patient has a history of diverticulitis so I am also suspicious for diverticulitis. No pain out of proportion to suggest necrotizing soft tissue infection. No obvious hernias so my suspicion for incarceration is low. Patient not been vomiting nor is he had any surgeries to his abdomen in the past so my suspicion for SBO is low. No dysuria no frequency so doubt UTI. No shortness of breath and no right upper quadrant pain so my suspicion is low for PE. No right upper quadrant tenderness nor vomiting nor diarrhea so my suspicion is low for acute cholecystitis. Will obtain a lipase to assess for pancreatitis given elevated BMI. Not a vasculopath so my suspicion for ruptured AAA is low. Furthermore patient has not had a syncopal episode and is no pulsatile masses. No rash to abdomen to suggest zoster. Ureterolithiasis less likely given no prior history. 7:45 AM Comprehensive metabolic panel showing very mild hyperglycemia but no anion gap and normal bicarbonate??not consistent with DKA. Normal reassuring lipase not consistent with pancreatitis. CBC lacks anemia thrombocytopenia and leukocytosi s. 9:[address] scan read as negative for appendicitis. Patient has diverticulosis but no diverticulitis. Cholelithiasis without obvious signs of acute cholecystitis. No AAA. Patient did have gallstones in the gallbladder neck but no pericholecystic fluid. No edema. Gallbladder not distended. I reassessed patient. He was tenderness right upper quadrant. He had reassuring normal LFTs however will complete a right upper quadrant ultrasound. 10:30 AM Patient's right upper quadrant ultrasound was negative for any acute pathology. He did have cholelithiasis but no pericholecystic fluid and no CBD dilatation. There were noted to be stones in the gallbladder neck. Given stones in neck will speak with general surgery. I spoke with Dr. Torres from the general surgery team. She requested that the patient be sent to the general surgery clinic now for scheduled interval cholecystectomy next week. I met with the patient and advised him to return to the ED if he cannot tolerate p.o. as result of nausea or vomiting. I provided him with directions to the general surgery clinic and discharged with outpatient general surgical follow-up. Chronic conditions affecting the care of the patient: Diabetes History obtained from an outside historian: N/A External record review: [facility] [place] EMR Medications: Fentanyl acetaminophen ondansetron Social determinants of health affecting disposition: N/A Management discussed with: General surgery Treatment/interventions considered: N/A Response to therapies provided: Improved symptoms following analgesia in the ED HPI This is a 43-year-old male with a history of hoj-[id number] diabetes arrived to the emergency department via private vehicle in the setting of abdominal pain. Patient notes that 2 days ago having pain in his right lower quadrant. He says that the pain is steadily worsened. This morning he went to work and had a normal bowel movement. Subsequently when he pressed on his right lower quadrant he had increasing pain. He felt bloated. He said no dysuria hematuria nor urinary frequency. He has no history of ureteral lithiasis. He has been nauseous but has not been vomiting. He has no past surgical history to his abdomen. He has had no fevers. No rashes to abdomen. Pain does not radiate. He denies exacerbators and alleviators. He denies chest pain and shortness of breath. No routine tobacco, ethanol, nor illicits. Exam General: Well-appearing in no acute distress speaking in complete sentences. Head: Normocephalic, atraumatic. Eye: Extraocular eye movements intact. No conjunctival injection. No scleral icterus. Ear, nose, mouth, throat: Grossly normal inspection. Normal voice, handling secretions normally. Neck: Trachea midline. Cardiovascular: Well-perfused distal extremities. Regular rate and rhythm. Respiratory: Nonlabored respiration. Clear lungs bilaterally. Gastrointestinal: Nondistended abdomen. Soft. Minimal right lower quadrant tenderness. No rebound. No guarding. No rash to abdomen. Musculoskeletal: No edema. Moving all 4 extremities spontaneously. Skin: Normal for age and race, grossly normal temperature and turgor. No acute rash. Neurologic: Alert and appropriate, no apparent acute deficits. Psychiatric: Mood and manner are appropriate. Grooming and personal hygiene are appropriate. Related Data Home Medications Medication Instructions Recorded Confirmed Cpap 1 unit inhalation DAILY 09/11/12 10/30/23 lancets 33 gauge ([facility] ea 11/04/14 10/30/23 Lancets) multivitamin (Daily Multi-Vitamin 1 ea PO DAILY 08/06/16 10/30/23 tablet) blood sugar diagnostic ([facility] strips 02/07/17 10/30/23 Ultra Test strips) pen needle, diabetic 31 gauge x ##90 06/12/20 10/30/2310/29 (Pen Needle) aspirin 81 mg tablet,delayed 81 mg PO DAILY 07/11/20 10/30/23 release carvedilol 3.125 mg tablet 3.125 mg PO BID #180 tabs 05/01/23 10/30/23 lisinopril 5 mg tablet 5 mg PO DAILY #90 tab-caps 05/01/23 10/30/23 metformin 500 mg tablet,extended 1,500 mg (3 x 500 mg) PO QPM #270 05/01/23 10/30/23 release 24hr (osmotic) tabs simvastatin 20 mg tablet 20 mg PO DAILY #90 tab-caps 05/01/23 10/30/23 dulaglutide 3 mg/0.5 mL 3 mg (0.5 mL) subcut QWEEK #2 mL 08/05/23 10/30/23 subcutaneous pen injector sertraline 50 mg tablet 50 mg PO DAILY #90 tabs 09/02/23 10/30/23 pantoprazole 40 mg tablet,delayed 40 mg PO DAILY #90 tabs 09/15/23 10/30/23 release ondansetron 4 mg disintegrating 4 mg PO Q6H PRN #14 tabs 10/30/23 10/30/23 tablet tramadol 50 mg tablet 50 mg PO Q4H PRN PRN pain #10 tabs 10/30/23 10/30/23 Previous Rx's Medication Instructions Recorded pen needle, diabetic 31 gauge x ##90 06/12/2010/29 (Pen Needle) carvedilol 3.125 mg tablet 3.125 mg PO BID #180 tabs 05/01/23 lisinopril 5 mg tablet 5 mg PO DAILY #90 tab-caps 05/01/23 metformin 500 mg tablet,extended 1,500 mg (3 x 500 mg) PO QPM #270 05/01/23 release 24hr (osmotic) tabs simvastatin 20 mg tablet 20 mg PO DAILY #90 tab-caps 05/01/23 dulaglutide 3 mg/0.5 mL 3 mg (0.5 mL) subcut QWEEK #2 mL 08/05/23 subcutaneous pen injector sertraline 50 mg tablet 50 mg PO DAILY #90 tabs 09/02/23 pantoprazole 40 mg tablet,delayed 40 mg PO DAILY #90 tabs 09/15/23 release ondansetron 4 mg disintegrating 4 mg PO Q6H PRN #14 tabs 10/30/23 tablet tramadol 50 mg tablet 50 mg PO Q4H PRN PRN pain #10 tabs 10/30/23 Allergies Allergy/AdvReac Type Severity Reaction Status Date / Time chloramphenicol Allergy Unknown Unknown Verified 10/30/23 06:45 chlorpheniramine Allergy Unknown From Verified 10/30/23 06:45 Naldecon phenylephrine Allergy Unknown From Verified 10/30/23 06:45 N[place]con phenylpropanolamine Allergy Unknown From Verified 10/30/23 06:45 Naldecon phenyltoloxamine Allergy Unknown From Verified 10/30/23 06:45 Naldecon General Stated Complaint: Abd Prob HELGA: 3 Course Vital Signs Vital signs: Vital Signs Temperature 36.8 C 10/30/23 06:40 Pulse 86 10/30/23 06:40 Respiratory Rate 18 10/30/23 06:40 Blood Pressure 137/80 10/30/23 06:40 Pulse Oximetry 98 10/30/23 06:40 Temperature 36.8 C 10/30/23 06:40 Temperature Source Oral 10/30/23 06:40 Pulse 86 10/30/23 06:40 Respiratory Rate 18 10/30/23 06:40 Respiratory Effort Normal 10/30/23 06:42 Blood Pressure 137/80 10/30/23 06:40 Pulse Oximetry 98 10/30/23 06:40 Oxygen Delivery Method Room Air 10/30/23 06:40 Oxygen Flow Rate 0 10/30/23 06:40 Pain Level 8 10/30/23 06:40 Medical Decision Making Quality:SDOH Health Related Social Needs: No Data to Display PFSH All Active Problems (Updated 10/30/23 @ 11:47 by Zoey M Stoiber, DO) Fatty liver disease, nonalcoholic (Acute) Calculus of gallbladder with chronic cholecystitis (Acute) Cholelithiasis (Acute) Acute right lower quadrant pain (Acute) Low back pain radiating to right leg (Acute) Right sided sciatica (Acute) Knee pain, left (Acute) Gall bladder polyp (Acute 10/31/14) stable on follow up Depressive disorder (Acute) Concussion (Acute) History of smoking (Acute) Adjustment disorder with anxiety (Acute) Acute diverticulitis (Acute) Obstructive sleep apnea syndrome (Chronic) CPAP Obesity (Chronic) Hyperlipidemia (Chronic 10/19/12) Gastroesophageal reflux disease (Chronic 02/25/12) Essential hypertension (Chronic 04/15/13) Diabetes mellitus (Chronic 10/31/14) Diverticulosis large intestine w/o perforation or abscess w/bleeding (Acute) Bereavement due to life event (Acute) History of chest pain (Acute) Elevated LFTs (Acute 11/21/14) neg hep c normal transferrin sat us fatty liver Increased BMI (Acute) Surgical History No significant past surgical history Family History STRONG FAMILY HX Heart disease Mother No problems noted. Father , age 53 Depression Diabetes Heart disease Hyperlipidemia Sister Depression Son Asthma Depression Maternal Grandfather , age 80 Alcohol abuse Cancer Paternal Grandfather , age 72 Diabetes Maternal Grandmother , age 78 No problems noted. Paternal Grandmother , age 80 No problems noted. Social History (Updated 08/28/22 @ 11:48 by Josephine Freed) Smoking/Tobacco Use Status: Former Tobacco Use tobacco type: cigarettes Quit Date: 06/16/10 Tobacco: How many years used: 15 Smokeless tobacco user: other (Cigarettes) Quit status: has quit before Second Hand Exposure: Yes Smoking risk assessment performed?: Yes Alcohol Intake: current Alcohol Intake frequency: a few times a month Alcohol type: beer and hard liquor Drug use: Never Substance use type: does not use Counseling given: No Caregiver/Support person: No Household members: significant other and children Housing: house Communication Needs: None Do you need help understanding health information?: Never current occupation: [employer] Pets and animals: Yes Pets and animals: cat(s), fish and other Details: bearded dragon Sexually active: Yes Do you think of yourself as: straight/heterosexual Current gender identity: male What is your relationship status?: How often do you talk on the phone with friends or family?: three or more times per week How often do you get together with friends or relatives?: three or more times per week How often do you attend taoism or quaker services?: decline to answer Do you belong to any clubs or organized social groups?: no Panel score (0-1 are the most socially isolated patients): 1 What type of physical activity do you participate in: walking Duration: 15-30 minutes/day Frequency: daily Tika/Latter-Day: Jainism Special tika needs: No Seatbelt use: sometimes Helmet use: No Drive intox or ride w/intox petroleum transport driver: No Do you feel safe at home: Yes Do you feel safe in your relationship?: Yes
[2023-10-30] MEDS: fentaNYL 100 MCG/2 ML VIAL 50 MCG IVP (07:19)
[2023-10-30] MEDS: ACETAMINOPHEN 1,000 MG/100 ML BTL 400 MG IVPB (07:19)
[2023-10-30] MEDS: Ondansetron O.D.T. 4 MG TABEF PO (07:19)
[2023-10-30 07:26] LABS: Abs Immature Grans 0.04 10^3/uL (0.0-0.06); Absolute Basophil Count 0.03 10^3/uL (0.0-0.2); Absolute Eosinophil Count 0.12 10^3/uL (0.0-0.7); Absolute Lymphocyte Count 1.32 10^3/uL (1.2-3.4); Absolute Monocyte Count 0.42 10^3/uL (0.1-0.8); Absolute Neutrophil Count 4.71 10^3/uL (1.2-6.7); Basophils % 0.5 %; Eosinophils % 1.8 %; HCT 42.7 % (40.0-50.0); HGB 14.6 g/dL (13.5-17.5); Immature Grans % 0.6 %; Lymphocytes % 19.9 %; MCH 28.7 pg (27.0-33.0); MCHC 34.2 % (32.0-36.0); MCV 84 fL (80-95); Monocytes % 6.3 %; Neutrophils % 70.9 %; Platelet Count 164 10^3/uL (130-400); RBC 5.08 10^6/uL (4.36-5.78); RDW-SD 39.6 fL; WBC 6.64 10^3/uL (4.4-10.8)
[2023-10-30 07:42] LABS: ALT 61 U/L (16-63); AST 21 U/L (15-37); Albumin 4.4 g/dL (3.4-5.0); Alkaline Phosphatase 99 U/L (46-116); Anion Gap 8.5 mmol/L (3-11); BUN 14 mg/dL (7-18); Bilirubin, Total 0.5 mg/dL (0.2-1.0); CO2 27.5 mmol/L (21.0-32.0); CREATININE 0.7 mg/dL (0.70-1.30); Calcium 9.2 mg/dL (8.5-10.1); Chloride 105 mmol/L (98-107); Estimated GFR 116.52 (mL/min/1.73m2); Glucose 122 mg/dL (74-106); Lipase 48 U/L (16-77); Potassium 4.1 mmol/L (3.5-5.1); Sodium 141 mmol/L (136-145); Total Protein 8.1 g/dL (6.4-8.2)
--- NOTE | 2023-10-30 07:55 | DI.CT_ITS ---
Exam(s) CT ABDOMEN PELVIS W EXAM: CT ABDOMEN PELVIS W CLINICAL HISTORY: Right lower quadrant pain. TECHNIQUE: Imaging Protocol: Axial computed tomography images with coronal and sagittal reformatted images were created and reviewed CONTRAST MATERIAL: Intravenous: Omnipaque-350 100cc Oral: None COMPARISON: CT CT ABDOMEN PELVIS W from 03/31/2021 FINDINGS: VISUALIZED LUNG BASES: No nodules nor pleural effusions evident. ABDOMEN: There is no ascites. LIVER: Liver is somewhat hypodense implying steatosis. There no discrete focal hepatic lesions. No dilated intrahepatic ducts. GALLBLADDER/BILIARY: There are gallstones noted in the gallbladder neck. Gallbladder is not distende d nor edematous and there is no pericholecystic fluid. CBD is not dilated. No calculi seen in the C BD. CBD is not dilated. PANCREAS: No evidence of pancreatic mass nor dilatation of the pancreatic duct. SPLEEN: Splenomegaly noted. No splenic lesions. Splenic and portal veins are patent. ADRENALS: There are no significant adrenal masses. KIDNEYS:No cysts evident. No solid renal masses. No calculi nor hydronephrosis.. ABDOMINAL AORTA: Abdominal aorta is not enlarged. LYMPH NODES:No para-aortic adenopathy. A few slightly enlarged retroperitoneal lymph nodes are noted . Largest being portacaval. ABDOMINAL WALL: There is a fat containing anterior abdominal wall umbilical hernia. Does not contain bowel loops. There is no transition point evident in the subjacent small bowel loops. GI: There is no evidence of bowel obstruction, free air, nor abscess. PELVIS: GI: Appendix appears unremarkable. No evidence of appendicitis.There diverticuli in the sigmoid. No obvious acute diverticulitis. LYMPH NODES: There is no intrapelvic nor inguinal adenopathy. REPRODUCTIVE: Prostate size normal. URINARY BLADDER: No calculi nor obvious masses evident OSSEOUS: No fractures and no significant osseous lesions. IMPRESSION: 1. No evidence of appendicitis. 2. Sigmoid diverticulosis. No obvious diverticulitis. 3. Splenomegaly again noted. 4. Cholelithiasis again noted. No obvious acute cholecystitis. No dilatation biliary tree. 5. There few slightly dilated retroperitoneal lymph nodes. No para-aortic adenopathy. Called by myself to ER physician. RADIATION DOSE DELIVERED: 1,386.26mGy.cm Total DLP DATA REPOSITORY: All CT scans at this facility are submitted to the National Radiology Data Registry (NRDR) Dose Index Registry (DIR) with the [employer] (ACR). RADIATION OPTIMIZATION: All CT scans at this facility use at least one of these dose optimization te chniques: automated exposure control; mA and/or kV adjustment per patient size (includes targeted exa ms where dose is matched to clinical indication); or iterative reconstruction.
[2023-10-30] MEDS: Normal Saline - Diluent 50 ML VIAL IJ (07:56)
[2023-10-30] MEDS: Omnipaque 350 MG/ML 500 ML BTL-Imaging package 100 ML IJ (07:57)
[2023-10-30] MEDS: Normal Saline 500 ML IV (07:58)
--- NOTE | 2023-10-30 09:00 | DI.US_ITS ---
Exam(s) US ABDOMEN LIMITED EXAM: US ABDOMEN LIMITED CLINICAL HISTORY: RUQ tenderness TECHNIQUE: Ultrasound abdomen performed using standard protocol. COMPARISON: US ABDOMEN ULTRASOUND (P) from 04/17/[address] ABDOMEN PELVIS W from 10/30/2023 FINDINGS: Patient not fasting. There is no ascites evident. LIVER: Liver is prominent size and hyperechoic indicating steatosis. There no discrete focal hepatic lesions identified. GALLBLADDER/BILIARY: There are gallstones noted predominately in the gallbladder neck. There also ap pear to be few polypoid masses in the gallbladder measuring up to 8 mm which are probably polyps. Ga llbladder wall is not edematous and there is no pericholecystic fluid The common hepatic duct isnot dilated, measuring 3-4mm at the level of jerson hepatis. PANCREAS: There is no evidence of pancreatic mass nor dilatation of the pancreatic duct. RIGHT KIDNEY:No evidence of solid mass, calculus, nor hydronephrosis. No cortical cysts evident. IMPRESSION: 1. Evaluation of the gallbladder is less than optimal due to patient not fasting. However, there ar e intraluminal gallstones noted and but appear to be multiple polyps in the gallbladder. Gallbladder wall does not appear acutely edematous and there is no pericholecystic fluid. CBD not dilated. 2. Hepatomegaly and hepatic steatosis. Please note this patient also has splenomegaly as seen on re cent CT scan. 3. There is no ascites. DATA REPOSITORY:
[2023-10-30] MEDS: Ketorolac 15 MG/ML VIAL IVP (10:20)
[2023-10-30 10:37] VITALS: BP 105/67; PULSE 75; RESP 14; TEMP 36.5; O2SAT 96
[2023-10-30 10:57] VITALS: BP 105/67; PULSE 75; RESP 14; TEMP 36.5; O2SAT 96
--- NOTE | 2023-10-30 13:44 | NUR.NOTE ---
Referral faxed to PCP for right lower quadrant pain, in 3 to 4 days. Nursing Note:
== END 2023-10-30 10:57 | disposition home or self-care (01) ==
PROVIDERS: Emergency Provider Emergency Medicine; PCP Family Medicine
DX: R10.31 Right lower quadrant pain (principal); R11.0 Nausea; K80.10 Calculus of gallbladder with chronic cholecystitis without obstruction; K80.20 Calculus of gallbladder without cholecystitis without obstruction
CPT/HCPCS: 36415; 80053; 83690; 96365; 96366; 96375; 99285; 74177; 76705; 85025; 99283; J0131; J1885; J3010

== ENCOUNTER 2023-11-03 06:05 | Day surgery (SDC) | payer BC, SELFPAY ==
--- NOTE | 2023-11-02 16:04 | SCONE_ITS ---
Date of service: 11/03/23 Time of Service: 07:20 Assessment and Plan Assessment and plan (1) Cholelithiasis: Status: Acute Assessment and plan: 43 yo man with likely symptomatic cholelithiasis. He does have gallbladder polyps which are possibly symptomatic as well, but usually they aren't. It's unclear from imaging reports whether the polyps are increasing in size, but they are numerous and measuring up to 8mm which is almost a size warranting GB removal whether symptomatic or not. DDx includes appendicitis and he has had sigmoid diverticulitis in the past. CT scan a few days ago did not show either of these entities and he has not had a leukocytosis or fevers. LFTs have been normal during the episodes of pain. No suspicion for a CBD stone. I discussed in detail, the risks, indications and likely benefits of the procedure. In particular, the biggest risk is persistent pain/symptoms after removing the gallbladder. There has been no evidence on imaging of cholecystitis, so there is no absolute certainty the GB is the source of the pain. Nonetheless, he does have gallstones and polyps and there will be benefit from surgery in that regard at minimum. Overall I suspect his GB probably is the culprit in the absence of any other usual or obvious CT findings. I did tell him that we will for sure carefully inspect the appendix and look at his colon to make sure there is not another pathologic process taking place. He agrees and wants to proceed with surgery. Overall plan: Diagnostic Laparoscopy, cholecystectomy as long as no other obvious pathology is taking place(such as appendicitis, enteritis or colitis) History of Present Illness Narrative: Patient having abdominal pain in setting of gallstones and gallbladder polyps. He has known about polyps in his GB for almost a decade. CT done in the ED failed to show any active process - essentially ruling out appendicitis and colitis/diverticulitis Patient describes the pain/discomfort as: Daily, has been going on for at least a few months on and off. Maybe even a couple of years. Really worse in the last week. PFSH All Active Problems (Updated 11/03/23 @ 06:40 by Marcie Carbajal) Fatty liver disease, nonalcoholic (Acute) Calculus of gallbladder with chronic cholecystitis (Acute) Cholelithiasis (Acute) Acute right lower quadrant pain (Acute) Low back pain radiating to right leg (Acute) Right sided sciatica (Acute) Knee pain, left (Acute) Acute diverticulitis (Acute) Adjustment disorder with anxiety (Acute) Diverticulosis large intestine w/o perforation or abscess w/bleeding (Acute) Bereavement due to life event (Acute) History of chest pain (Acute) History of smoking (Acute) Concussion (Acute) Depressive disorder (Acute) Diabetes mellitus (Chronic 10/31/14) Elevated LFTs (Acute 11/21/14) neg hep c normal transferrin sat us fatty liver Essential hypertension (Chronic 04/15/13) Gastroesophageal reflux disease (Chronic 02/25/12) Hyperlipidemia (Chronic 10/19/12) Increased BMI (Acute) Obesity (Chronic) Obstructive sleep apnea syndrome (Chronic) CPAP Gall bladder polyp (Acute 10/31/14) stable on follow up Medical History (Updated 11/03/23 @ 06:40 by Marcie Carbajal) Diabetes 1.5, managed as type 2 HTN (hypertension) Surgical History (Updated 11/03/23 @ 06:39 by Marcie Carbajal) History of wisdom tooth extraction Hx of hand surgery R hand No significant past surgical history Family History STRONG FAMILY HX Heart disease Mother No problems noted. Father , age 53 Depression Diabetes Heart disease Hyperlipidemia Sister Depression Son Asthma Depression Maternal Grandfather , age 80 Alcohol abuse Cancer Paternal Grandfather , age 72 Diabetes Maternal Grandmother , age 78 No problems noted. Paternal Grandmother , age 80 No problems noted. Social History (Updated 08/28/22 @ 11:48 by Josephine Freed) Smoking/Tobacco Use Status: Former Tobacco Use tobacco type: cigarettes Quit Date: 06/16/10 Tobacco: How many years used: 15 Smokeless tobacco user: other (Cigarettes) Quit status: has quit before Second Hand Exposure: Yes Smoking risk assessment performed?: Yes Alcohol Intake: current Alcohol Intake frequency: a few times a month Alcohol type: beer and hard liquor Drug use: Never Substance use type: does not use Counseling given: No Details: alcohol: october 18, 2023 Caregiver/Support person: No Household members: significant other and children Housing: house Communication Needs: None Do you need help understanding health information?: Never current occupation: [employer] Pets and animals: Yes Pets and animals: cat(s), fish and other Details: bearded dragon Sexually active: Yes Do you think of yourself as: straight/heterosexual Current gender identity: male What is your relationship status?: How often do you talk on the phone with friends or family?: three or more times per week How often do you get together with friends or relatives?: three or more times per week How often do you attend anabaptist or synagogue services?: decline to answer Do you belong to any clubs or organized social groups?: no Panel score (0-1 are the most socially isolated patients): 1 What type of physical activity do you participate in: walking Duration: 15-30 minutes/day Frequency: daily Tika/Christian: Religious Special tika needs: No Seatbelt use: sometimes Helmet use: No Drive intox or ride w/intox jukebox route driver: No Do you feel safe at home: Yes Do you feel safe in your relationship?: Yes Additional Social history: unable to assess privately Exam Narrative Exam Narrative: Gen: nontoxic, comfortable and interactive. He is overweight. Neuro: AxOx3 Psych: Good mood and affect, good insight and understanding Heart: Regular Chest: Clear, no wheezing Abdomen: Soft, nondistended, mildly tender in RUQ. No peritoneal signs.
[2023-11-03] VITALS (10 sets, daily range): BP systolic 104–119; BP diastolic 65–80; PULSE 83–89; RESP 15–23; TEMP 36.4–36.6; O2SAT 93–98; BMI 36.9
--- NOTE | 2023-11-03 06:28 | ANES.PREOP_ITS ---
General Info Date of Service Date Performed: 11/03/23 Height: 5 ft 10 in Weight: 116.743 kg Body Mass Index (BMI): 36.9 Surgical Procedure: Operation Date: 11/03/23 07:40 Proposed Procedure Side Surgeon p Cholecystectomy Laparoscopic, Possible Open, Possible Cholangiogram Gerry Palomo MD Meds Allergies and Home Medications Allergies Allergy/AdvReac Type Severity Reaction Status Date / Time chloramphenicol Allergy Unknown Unknown Verified 11/03/23 06:35 chlorpheniramine Allergy Unknown From Verified 11/03/23 06:35 [place] phenylephrine Allergy Unknown From Verified 11/03/23 06:35 [place] phenylpropanolamine Allergy Unknown From Verified 11/03/23 06:35 [place] phenyltoloxamine Allergy Unknown From Verified 11/03/23 06:35 [place] Home Medication Medication Instructions Recorded Cpap 1 unit inhalation DAILY 09/11/12 lancets 33 gauge ([employer] Delica #100 ea 11/04/14 Lancets) multivitamin (Daily Multi-Vitamin 1 ea PO DAILY 08/06/16 tablet) blood sugar diagnostic ([employer] #100 strips 02/07/17 Ultra Test strips) pen needle, diabetic 31 gauge x ##90 06/12/2010/29 (Pen Needle) aspirin 81 mg tablet,delayed 81 mg PO DAILY 07/11/20 release carvedilol 3.125 mg tablet 3.125 mg PO BID #180 tabs 05/01/23 lisinopril 5 mg tablet 5 mg PO DAILY #90 tab-caps 05/01/23 metformin 500 mg tablet,extended 1,500 mg (3 x 500 mg) PO QPM #270 05/01/23 release 24hr (osmotic) tabs simvastatin 20 mg tablet 20 mg PO DAILY #90 tab-caps 05/01/23 dulaglutide 3 mg/0.5 mL 3 mg (0.5 mL) subcut QWEEK #2 mL 08/05/23 subcutaneous pen injector sertraline 50 mg tablet 50 mg PO DAILY #90 tabs 09/02/23 pantoprazole 40 mg tablet,delayed 40 mg PO DAILY #90 tabs 09/15/23 release ondansetron 4 mg disintegrating 4 mg PO Q6H PRN #14 tabs 10/30/23 tablet tramadol 50 mg tablet 50 mg PO Q4H PRN PRN pain #10 tabs 10/30/23 Current Visit Medications: Current Medications Generic Name Dose Route Start Last Admin Trade Name Michael PRN Reason Stop Dose Admin Acetaminophen 1,000 mg 11/03/23 06:00 Acetaminophen 500 Mg Tab PO 11/03/23 23:59 PREOP JORDAN Gabapentin 600 mg 11/03/23 06:00 Gabapentin 300 Mg Cap PO 11/03/23 23:59 PREOP JORDAN Ringer's Solution 1,000 mls @ 80 mls/hr 11/03/23 06:00 IV 11/03/23 23:59 INFUSION JORDAN Levofloxacin 750 mg in 150 mls @ 100 mls/hr 11/03/23 06:00 Levaquin Premixed Bag IVPB 11/03/23 23:59 [facility] IV Miscellaneous Supplies 1 each 11/03/23 06:00 Iv Access IV 11/03/23 23:59 DIRECTED JORDAN Indocyanine Green 5 mg 11/03/23 06:00 Indocyanine Green 25 Mg Vial IVP 11/03/23 23:59 DIRECTED JORDAN Sodium Chloride 0 ml 11/03/23 06:00 Normal Saline Flush 10 Ml Syr IV 11/03/23 23:59 PRN PRN Sodium Chloride 0 ml 11/03/23 06:00 Normal Saline 10 Ml Vial IJ 11/03/23 23:59 DIRECTED PRN Sterile Water 0 ml 11/03/23 06:00 Water,Injection,Sterile 10 Ml Vial IJ 11/03/23 23:59 DIRECTED PRN PFSH Active Problems Active Problems: Problem Status Onset Code Fatty liver disease, nonalcoholic K76.0 Calculus of gallbladder with chronic cholecystitis K80.10 Cholelithiasis K80.20 Acute right lower quadrant pain R10.31 Low back pain radiating to right leg M54.50, M79.604 Right sided sciatica M54.31 Knee pain, left M25.562 Acute diverticulitis K57.92 Adjustment disorder with anxiety F43.22 Diverticulosis large intestine w/o perforation or abscess w/bleeding K57.31 Bereavement due to life event Z63.4 History of chest pain Z87.898 History of smoking Z87.891 Concussion S06.0X9A Depressive disorder F32.9 Diabetes mellitus 10/31/14 E11.9 Elevated LFTs 11/21/14 R94.5 Essential hypertension 04/15/13 I10 Gastroesophageal reflux disease 02/25/12 K21.9 Hyperlipidemia 10/19/12 E78.5 Increased BMI R63.8 Obesity E66.9 Obstructive sleep apnea syndrome G47.33 Gall bladder polyp 10/31/14 K82.4 Medical History Medical History (Updated 11/03/23 @ 06:40 by Marcie Carbajal) Diabetes 1.5, managed as type 2 HTN (hypertension) Surgical History Surgical History (Updated 11/03/23 @ 06:39 by Marcie Carbajal) History of wisdom tooth extraction Hx of hand surgery R hand No significant past surgical history Tobacco Smoking/Tobacco Use Status: Former Tobacco Use Smokeless tobacco user: other (Cigarettes) Passive smoking exposure: No Second hand exposure: Yes Alcohol Alcohol Intake: current Alcohol intake frequency: a few times a month Alcohol type: beer and hard liquor Substance Use Substance use: Never Substance use type: does not use Vital Signs and Lab Results Vital Signs Most Recent Vital Signs in EMR: Temp Pulse Resp BP Pulse Ox 36.5 C 89 20 119/80 97 11/03/23 06:41 11/03/23 06:41 11/03/23 06:41 11/03/23 06:41 11/03/23 06:41 Lab Results Blood Type / Crossmatch: No Data to Display Complete Blood Count: White Blood Count 6.64 10^3/uL (4.4-10.8) 10/30/23 07:08 Red Blood Count 5.08 10^6/uL (4.36-5.78) 10/30/23 07:08 Hemoglobin 14.6 g/dL (13.5-17.5) 10/30/23 07:08 Hematocrit 42.7 % (40.0-50.0) 10/30/23 07:08 Platelet Count 164 10^3/uL (130-400) 10/30/23 07:08 Complete Metabolic Panel: Sodium 141 mmol/L (136-145) 10/30/23 07:08 Potassium 4.1 mmol/L (3.5-5.1) 10/30/23 07:08 Chloride 105 mmol/L (98-107) 10/30/23 07:08 Carbon Dioxide 27.5 mmol/L (21.0-32.0) 10/30/23 07:08 BUN 14 mg/dL (7-18) 10/30/23 07:08 Creatinine 0.7 mg/dL (0.70-1.30) 10/30/23 07:08 Est GFR (CKD-EPI 2020) 116.52 (mL/min/1.73m2) 10/30/23 07:08 Calcium 9.2 mg/dL (8.5-10.1) 10/30/23 07:08 Albumin 4.4 g/dL (3.4-5.0) 10/30/23 07:08 Glucose 122 mg/dL (74-106) H 10/30/23 07:08 Liver Function Panel: 2 Alanine Aminotransferase (ALT/SGPT) 61 U/L (16-63) 10/30/23 07: 08 Aspartate Amino Transf (AST/SGOT) 21 U/L (15-37) 10/30/23 07:08 Coagulation Panel: No Data to Display Cardiac Panel: No Data to Display Arterial Blood Gas: No Data to Display Venous Blood Gas: No Data to Display Pancreas Panel: Lipase 48 U/L (16-77) 10/30/23 07:08 Thyroid Panel: No Data to Display Infectious Disease: No Data to Display Blood Cultures: No Data to Display Toxicology Panel: No Data to Display Anesthesia Assessment and Plan Anesthesia History Personal History: No History of Anesthesia Complications Family History: No Family History of Anesthesia Complications Exercise Tolerance Exercise Tolerance: Metabolic Equivalents>4 Cardiac & Pulmonary Exam Cardiac Exam: Normal S1/S2 Heart Sounds Pulmonary Exam: Clear Bilateral Breath Sounds Implantable Cardiac Device Does patient have a Pacemaker or an ICD?: No Airway Exam Known Difficult Airway: No Mallampati Class: 4 Mouth Opening: Narrow (< 3cm) Thyromental Distance: Greater than 3 cm Neck Range of Motion: Full ROM Neck Circumference: Thick Teeth Condition: Normal Dentition ASA Classification ASA Score: ASA 2 Emergency Case?: No NPO Status NPO Status: NPO Clears >2 hours, Solids >8 hours Anesthesia Plan Resuscitation Status: Full Code Anesthesia Technique: General Anesthesia Airway Planned: Endotracheal Tube Monitors Used: Standard Monitors Preoperative Comments:: 43 yo male for lap yaritza. Sig PMHx: HTN (lisinopril, carvedilol - well controlled), MALVIN (uses CPAP), GERD (pantoprazole, fair control), fatty liver, DM (dulaglutide, metformin), anxiety/depression (sertraline). former smoker, occ EtOh.
[2023-11-03] MEDS: Lactated Ringers 1,000 ML 80 ML IV (06:40)
[2023-11-03] MEDS: Normal Saline Flush 10 ML SYR IV (06:52)
[2023-11-03] MEDS: Indocyanine green 25 MG VIAL 5 MG IVP (06:53)
[2023-11-03] MEDS: levoFLOXacin 750 MG/150 ML BAG 100 MG IVPB (07:00)
[2023-11-03] MEDS: Gabapentin 300 MG CAP 600 MG PO (07:08)
[2023-11-03] MEDS: Acetaminophen 500 MG TAB 1000 MG PO (07:08)
[2023-11-03] MEDS: Bupivacaine 0.25% Pres-Free 30 ML VIAL (08:07)
[2023-11-03] MEDS: Heparin 5,000 UNITS/ML VIAL 5000 UNITS (08:10)
--- NOTE | 2023-11-03 08:47 | OMENTUMBX_PTH ---
PATIENT: Hi Coronel LOC: [facility] U#:[id number] AGE/SX: 43/M ROOM: RE11/03/[address]: Gerry Palomo : 1980 BED: DIS: 11/03/2023 SPEC #: [id number] RECD: 11/03/23 12:58 STATUS: CHERELLE RE #: [id number] ROMA: 11/03/23 08:[address]: Gerry Palomo DEPT: Surgical Specimen RECD BY: Ava Dove ENTERED: 11/03/23 12:59 SP TYPE: OMENTUMBX OTHR DR: Sergio Kinsey MD Tissues: 1 - OMENTAL/OMENTUM BIOPSY/RESECTION Procedures: GROSS AND MICRO LEVEL 4 Comments: [id number]
--- NOTE | 2023-11-03 09:31 | W.ANESPOSTOP ---
Postoperative Evaluation Date, Time and Location Date Performed: 11/03/23 Time Performed: :31 Patient Location: PACU Vital Signs Most Recent Imported Vital Signs: Most Recent Vital Signs Temp Pulse Resp BP Pulse Ox 36.4 C L 84 19 108/72 98 11/03/23 09:19 11/03/23 09:19 11/03/23 09:19 11/03/23 09:19 11/03/23 09:19 Pain Score Most Recent Pain Score: Most Recent Pain Score Pain Level 0 11/03/23 09:19 Assessment Mental Status: Awake (Alert & Oriented to Patient Baseline) Airway and Respiratory Function: Patent airway with normal (patient baseline) respiratory exam Cardiovascular Function: Hemodynamically Stable Hydration Status: Adequately Hydrated Nausea & Vomiting: No Nausea or Vomiting Pain: Pain is tolerable per patient Peripheral Nerve Block: Patient did not receive a nerve block
--- NOTE | 2023-11-03 09:38 | W.PM.OP ---
Date of service: 11/03/23 Time of Service: 09:39 Operative Note Operative Note Refer to Anesthesia Record Procedure Description: Procedures performed: 1. Diagnostic laparoscopy 2. Laparoscopic partial omentectomy 3. Laparotomy Preoperative Diagnosis: Abdominal pain, symptomatic cholelithiasis Postoperative Diagnosis: Infarcted omentum, epiploic appendagitis Surgeon: Kavya Palomo Assist: Tye HANLEY Anesthesia: General Anesthesiologist: Michael Indication: 43-year-old man developed severe abdominal pain about a week ago. It has been persistent but is a little bit better over the last few days. He has known gallstones and gallbladder polyps but no radiographic evidence of cholecystitis. Findings: In the right hemiabdomen was a knuckle of twisted omentum and epiploic appendage, densely adherent against the anterior abdominal wall laterally and also densely adherent with a loop of mid?gut small bowel. Partial omentectomy was performed in the infarcted fat was resected. A mini-laparotomy was created in order to inspect the small bowel. It was felt the small bowel was adherent as a bystander to the infarcted omentum and no obvious pathologic process was found on the small bowel itself. Thus it was not resected. The appendix was completely normal. The gallbladder was completely normal in appearance. They were not removed. The mini laparotomy was made to include the small umbilical hernia he already had and this was then closed primarily. Complications: None Estimated Blood Loss: Scant Specimens removed: 1. Partial omentectomy Grafts or implants: none Procedure in detail: Written consent was obtained from the patient who was in agreement with the risks, the benefits and the indications for the procedure. The patient was taken to the operating suite and laid supine on the operating table with arms outstretched. IV antibiotics had been administered and DVT prophylaxis had been given. Venodynes were in place. General anesthesia was administered which was tolerated very well. We then prepped and draped the abdomen in sterile fashion. A timeout was performed. When we were all in agreement we began the procedure. Local anesthetic was injected. Within the umbilicus, using the patient's small umbilical hernia for entry, a small stab incision was made and a 5 mm Optiview trocar was used to enter into the abdomen under direct visualization. Insufflation was performed which was tolerated very well. The liver was inspected and did not appear cirrhotic. 2 more 5 mm ports were placed under direct visualization laterally in anticipation for gallbladder removal. I performed four-quadrant diagnostic laparoscopy. It was instantly and readily obvious that a pathologic process was taking place in the right lateral hemiabdomen. Omentum was densely adherent against the anterior abdominal wall and had a loop of small bowel encased within it. It was unclear if this was related to a colon process either ascending or transverse, underneath. I was able to easily find a normal appendix in the right lower quadrant. I was also able to expose the gallbladder and the gallbladder fossa and this was blue and soft and did not appear to have any inflammation or problems acutely or chronically. I turned my attention to the obvious problem that is causing his pain. Gentle blunt dissection was able to release the process off the abdominal wall and a patch of obvious peritonitis is visible after removal. Carefully I gently, bluntly the small bowel off of the adherent omentum. About 7-10cm of small bowel was clearly inflamed and irritated though it seemed to be secondary to the omental process. After reducing the small bowel away, it did seem obvious that the omentum was actually adherent to colonic appendages and there is almost the suggestion that an internal hernia had occurred between that inappropriate connection. What seemed obvious was that the omentum and the epiploic appendage were densely infarcted and becoming gangrenous. A neoplastic process cannot be excluded although no peritoneal studding or any other visible suspicious/possible neoplastic process was appreciated anywhere. The transverse colon underneath the omentum and associated with the epiploic appendage looks completely normal and healthy. No diverticuli and no inflammation. No masses. I used a ligature and performed a wide excision and resection and ensuring good healthy margins of omentum and I took the epiploic appendage within half a centimeter of the colon wall. All margins were viable in appearance. This was placed in an Endo Catch bag. I again had a good second look at his gallbladder and appendix which were completely normal. I did ask Dr. Cifuentes to come in and render a second opinion on the matter since we were making a drastic operative management change. We both agreed that the gallbladder was not the problem and should be left alone in the absence of any visible inflammation and not even a remote component of the active process. The pathologic process I uncovered is to clear an obvious problem. Less obvious but agreed upon is at the omentum is the underlying problem and this was resected. I then extended my 5 mm umbilical port that is within a small hernia and made a mini laparotomy incorporating the hernia within this laparotomy. I used an Eitan wound protector. I removed the partial omentectomy specimen within the Endo Catch bag through this. Next, I extracorporealized the segment of small bowel and palpated it carefully and inspected it visually on both sides. There was no palpable process of concern and certainly no defect or hole anywhere. This was consistent with the epiploic and omentum being the problem and I did not feel the small bowel was the inciting culprit. It remains possible that this loop of small bowel partially internal?herniated through the tunnel that existed from the epiploic and omentum adhesions. In any event the small bowel was viable and I decided against resecting it. The 5 mm ports were removed under direct visualization. Hemostasis was excellent in all 4 quadrants. The specimens had all been removed. I removed the wound protector and then closed the incision with 0 PDS in the fascia. This closure involved the small umbilical hernia that the patient had previously. Using cautery and the LigaSure I freshened up all the edges of the fascia and then these were closed with the 0 PDS. The skin was closed with Monocryl and Dermabond was placed on top. The sponge, instrument and sharps count was correct x3 at the end of the procedure. The patient tolerated the procedure well and was taken to the PACU in hemodynamically stable condition.
--- NOTE | 2023-11-03 09:59 | W.PM.DSUDISC ---
Date of service: 11/03/23 Time of Service: 09:59 Discharge Plan Disposition Patient Disposition: Home Discharge Details Attending Provider: Gerry Palomo Primary Care Provider: Sergio Kinsey Home Meds and New Rx's Prescriptions: No Action sertraline 50 mg tablet 50 mg PO DAILY Qty: 90 3RF ondansetron 4 mg tablet,disintegrating 4 mg PO Q6H PRN Qty: 14 0RF Patient Comments: hasnt taken tramadol 50 mg tablet 50 mg PO Q4H PRN PRN (Reason: pain) Qty: 10 0RF Patient Comments: pt hasnt taken lisinopril 5 mg tablet 5 mg PO DAILY Qty: 90 3RF metformin 500 mg tablet extended release 24hr 1,500 mg PO QPM Qty: 270 3RF simvastatin 20 mg tablet 20 mg PO DAILY Qty: 90 3RF carvedilol 3.125 mg tablet 3.125 mg PO BID Qty: 180 3RF Rx Instructions: must administer with a meal/food CPAP 1 unit inhalation DAILY (DME) lancets [[employer] Lancets] 1 EACH misc 1 ea Miscellaneous DAILY Qty: 100 Rx Instructions: dx: 250.00 on oral meds multivitamin [Daily Multi-Vitamin] 1 EACH tablet 1 ea PO DAILY (DME) [employer]Touch Ultra Test 1 EACH strip 1 ea Miscellaneous DAILY Qty: 100 Rx Instructions: dx:250.00 on oral meds (DME) pen needle, diabetic [Pen Needle] 31 gauge x 5/16 needle 1 ea Miscellaneous DAILY Qty: 90 3RF Rx Instructions: use daily dulaglutide 3 mg/0.5 mL pen injector 3 mg subcut QWEEK Qty: 2 11RF pantoprazole 40 mg tablet,delayed release (DR/EC) 40 mg PO DAILY Qty: 90 3RF aspirin 81 mg Tablet,Delayed Release (Dr/Ec) 81 mg PO DAILY Discharge Instructions Additional Instructions: Incisions: Keep clean and dry but they do not need to be covered. It is okay to shower but no tub bathing for 1 week. You can peel the glue off after 1 week. Activity: As tolerated. There are no restrictions. Return to work, as tolerated in the next few days. If you need a work note call the surgery office to fill out what ever paperwork you have that needs to be completed. Diet: Regular diet as tolerated Medications: Resume all of your usual/regular home medications. Follow-up: Follow-up in 2 weeks. Call and schedule an appointment. Pain control: Take Tylenol, 1000 mg, every 6 hours on a schedule for the next 3 days. You can use ibuprofen in addition to Tylenol. Narcotic medication should not be needed. Overall: Symptoms should not be worsening. If you have any difficulty breathing or you have return of symptoms of brought you to the hospital or your pain is otherwise worsening each day and you should call the doctor's office or come into the hospital to be checked out. Discharge Orders Discharge Orders: Discharge Order (Routine); Ordered 11/03/23 Ordered By: Gerry Palomo DS: Diagnosis Discharge Diagnosis (1) Cholelithiasis: Status: Acute Asessment and Plan: 43-year-old man is postop from diagnostic laparoscopy at which point the diagnosis was changed to epiploic appendagitis and infarcted omentum. The gallbladder itself was not involved with the pathologic inflammatory process and was left in situ.
== END 2023-11-03 11:29 | disposition home or self-care (01) ==
PROVIDERS: PCP Family Medicine; Visit Provider Student in an Organized Health Care Education/Training Program
PROC: 0FT44ZZ Resection of Gallbladder, Percutaneous Endoscopic Approach (ICD-10-PCS; CPT 47562; principal; 2023-11-03 07:30)
DX: K55.021 Focal (segmental) acute infarction of small intestine (principal); K63.89 Other specified diseases of intestine; G47.33 Obstructive sleep apnea (adult) (pediatric); I10 Essential (primary) hypertension; K57.30 Diverticulosis of large intestine without perforation or abscess without bleeding; E11.9 Type 2 diabetes mellitus without complications; Z79.85 Long-term (current) use of injectable non-insulin antidiabetic drugs; Z79.84 Long term (current) use of oral hypoglycemic drugs
CPT/HCPCS: 49255; 00123; 88305; J0665; J1100; J1644; J1805; J1885; J1956; J2250; J2405; J2704; J3475

== ENCOUNTER → 2023-12-16 02:21 | Outpatient (CLI) | payer BC, SELFPAY ==
--- NOTE | 2023-12-16 | DI.RAD_ITS ---
Exam(s) XR LUMBAR SPINE FLEX/EXT ONLY EXAM: XR LUMBAR SPINE FLEX/EXT ONLY CLINICAL HISTORY: RADICULOPATHY LUMBAR REGION M54.16 RT FOOT DROP M21.371 PARESTHESIA M43.00. TECHNIQUE: 2D digital imaging was performed. COMPARISON: CR XR LUMBAR SPINE COMPLETE from 09/08/2023 FINDINGS: Two lateral views-flexion and extension performed upright. No evidence of fracture nor disc space narrowing. On the flexion view there is mild anterolisthesis of L5 upon S1. There does not appear to be obvious pars interarticularis defects.. 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 IMPRESSION: Mild anterolisthesis of L5 upon S1. No disc space narrowing. DATA REPOSITORY: RADIATION DOSE DELIVERED:
--- NOTE | 2023-12-16 | DI.MRI_ITS ---
Exam(s) MR LUMBAR SPINE WO EXAM: MR LUMBAR SPINE WO CLINICAL HISTORY: LUMBAR RADICULOPATHY RLE M54.16, RT FOOT DROP M21.371 PARESTHESIAS R20.2. TECHNIQUE: Multiplanar multisequence MRI of the Lumbar spine was performed. COMPARISON: CR XR LUMBAR SPINE COMPLETE from 09/08/2023 FINDINGS: Prior plain films revealed spina bifida occulta L5 level. Conus medullaris is at normal level. There is no evidence of conus mass nor subjacent clumping of in trathecal nerve roots to suggest arachnoiditis. The distal thecal sac appears unremarkable.There is no evidence of Tarlov intrasacral cysts nor other significant findings within the sacral canal Bones:There are no fractures nor ominous osseous lesions in the lumbar vertebral bodies and visualize d sacrum. With respect to the individual levels... T12-L1: Unremarkable L1-2: Normal disc height and signal. No disc herniation nor central canal stenosis.No foraminal steno sis L2-3: Normal disc height. No disc herniation nor central canal stenosis.No foraminal stenosis.No face t arthropathy. L3-4: Normal disc height. No disc herniation or central canal stenosis.No foraminal stenosis.No face t arthropathy. L4-5: Normal disc height and signal. No evidence of disc herniation or central canal stenosis. No f oraminal stenosis. No significant facet arthropathy. L5-S1: Normal disc height and signal. No disc herniation nor central canal stenosis. No significant foraminal stenosis. Mild degenerative changes in the facet joints Soft tissues: paraspinal soft tissues appear unremarkable. IMPRESSION: No significant findings on this MRI scan of the lumbosacral spine. DATA REPOSITORY:
== END ==
PROVIDERS: PCP Family Medicine; Visit Provider Nurse Practitioner Family
DX: M54.16 Radiculopathy, lumbar region (principal); M21.371 Foot drop, right foot; R20.2 Paresthesia of skin; M43.00 Spondylolysis, site unspecified; M43.16 Spondylolisthesis, lumbar region
CPT/HCPCS: 72120; 72148

== ENCOUNTER 2024-01-05 21:21 | Outpatient (REF) | payer BC, SELFPAY | END 2024-01-05 21:22 | disposition home or self-care (01) | LOC: LBN 21:21 | PROVIDERS: PCP Family Medicine; Visit Provider Nurse Practitioner Family | DX: R10.31 Right lower quadrant pain; L98.8 Other specified disorders of the skin and subcutaneous tissue; T81.49XA Infection following a procedure, other surgical site, initial encounter | CPT/HCPCS: 87070; 87205 ==

== ENCOUNTER 2024-09-16 08:58 | Outpatient (CLI) | payer BC, SELFPAY ==
[2024-09-16 16:58] LABS: CREATININE 0.8 mg/dL (0.70-1.30); Calculated LDL 60 mg/dL (<100); Cholesterol 124 mg/dL (<200); Estimated GFR 111.92 (mL/min/1.73m2); HDL Cholesterol 31 mg/dL (>or=40); Triglyceride 167 mg/dL (<150)
[2024-09-16 17:11] LABS: Hemoglobin A1C 5.9 % (<5.7)
[2024-09-21 09:17] LABS: Lab Add On Test DONE
[2024-09-21 09:29] LABS: Magnesium 2.2 mg/dL
== END 2024-09-16 08:59 | disposition home or self-care (01) ==
LOC: LBO 08:58
PROVIDERS: PCP Family Medicine; Visit Provider Family Medicine
DX: I10 Essential (primary) hypertension (principal); E78.5 Hyperlipidemia, unspecified; R73.9 Hyperglycemia, unspecified
CPT/HCPCS: 36415; 80061; 82565; 83036; 83735; 84132

== ENCOUNTER 2024-10-19 14:16 | Outpatient (CLI) | payer BC, SELFPAY ==
[2024-10-19 14:36] VITALS: BP 128/84; PULSE 91; RESP 20; TEMP 36.7; O2SAT 97
--- NOTE | 2024-10-19 15:15 | PDOC.PAIN ---
Date of service: 10/19/24 Time of Service: 15:31 Pain Managment Procedure Note Procedure Note Procedure Note: ?Sacroiliac Joint Steroid Injection ? Location: ? Right SI Joint? Pre-procedure Diagnosis: Sacroiliitis, not elsewhere classified - M46.1 ? Post-procedure Diagnosis:? The same as above ? Sedation:? NONE ? Medication: Depo-Medrol 40 mg, bupivacaine 0.5% 1 mL, Omnipaque 0.25 mL per joint ? Estimated blood loss:? less than 2 cc ? Surgeon:? David Adams MD ? COMMENT: THIS WILL BE BOTH DIAGNOSTIC AND THERAPEUTIC ? Procedure Detail:? The procedure and potential risks were explained to the patient and informed written consent was obtained. The patient was escorted to the procedure room and placed in the prone position. Pillows were utilized for proper positioning and comfort. Time out was performed in the procedure room with nursing staff confirming the patient's identity, procedure to be performed, allergies, and any blood thinning or anti-platelet medications. The patient's lumbosacral area was prepped with ChloraPrep and draped in a sterile fashion. Sterile technique was maintained throughout the procedure.? Sterile gloves were used, a face mask was worn, and new single dose vials of all medications were used with the top being swabbed with alcohol and given time to dry prior to withdrawal of medication. Lidocaine 1% was used to anesthetize the skin. With fluoroscopic guidance, a 22-gauge 3.5 spinal needle was advanced into the posteroinferior aspect of the Right SI joint . Confirmation of intra-articular position of the needle tip was obtained with injection of 0.25cc of Omnipaque 240 contrast which showed appropriate spread within the joint.? Following negative aspiration, 40mg of methylprednisolone mixed with 1 mL of bupivacaine 0.5% was injected.? The needle was gently removed. ?The patient tolerated the procedure well and was transported to the recovery area for observation and discharge instructions.? Permanent images saved and recorded. Plan:? Follow up prn. PAIN PRE PROCEDURE 6/10 POST PROCEDURE 0/10 COMMENT: [100] % BETTER AFTER INJECTION. Can repeat if patient gets good relief for at least 3 to 6 months Coding Conscious Sedation used for procedure: No Additional Codes: Date of Service (86512) Date of service: 10/19/24
[2024-10-19 15:17] VITALS: PULSE 84; O2SAT 97
[2024-10-19 15:20] VITALS: PULSE 87; O2SAT 97
--- NOTE | 2024-10-19 15:26 | DI.RAD_ITS ---
Exam(s) XR PAIN CLINIC SACRIOILIAC 2V EXAM: XR PAIN CLINIC SACRIOILIAC 2V CLINICAL HISTORY: Dx: Sacroiliac Joint Dysfunction. TECHNIQUE: Fluoroscopy was provided for the referring physician for guidance with performing pain cl inic injection procedure. COMPARISON: No exams were available for comparison FINDINGS: Please see procedure note for details. Fluoro time: 25.8 seconds RADIATION DOSE DELIVERED: Ka,r=17.5 mGy
[2024-10-19] MEDS: Omnipaque 240 MG/ML 50 ML BTL IJ (15:33)
[2024-10-19] MEDS: Bupivacaine 0.5% Pres-Free 10 ML VIAL IJ (15:34)
[2024-10-19] MEDS: methylPREDNISolone ACETATE 80 MG/ML VIAL IJ (15:34)
== END 2024-10-19 14:17 | disposition home or self-care (01) ==
LOC: PC 14:17
PROVIDERS: PCP Family Medicine; Visit Provider Anesthesiology Pain Medicine
DX: M46.1 Sacroiliitis, not elsewhere classified (principal); M54.50 Low back pain, unspecified
CPT/HCPCS: 27096; 72200; J0665; J1010; Q9967